=== PATIENT | male | born 1960 | race Caucasian/White ===

== ENCOUNTER 2016-06-05 18:09 | Emergency (ER) | payer MEDICARE, OTHER ==
[~2016-06-05] VITALS: Ht 177.8 cm; Wt 100.0 kg
[2016-06-05 18:10] VITALS: BP 134/87; PULSE 84; RESP 18; TEMP 97.4; O2SAT 97
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
[2016-06-05 19:42] LABS: AUTOMATED NEUTROPHIL # 3.9 TH/MM3 (1.8-7.7); BASOPHIL % 0.3 % (0.0-2.0); EOSINOPHIL % 0.7 % (0.0-4.0); HEMATOCRIT 42.4 % (39.0-51.0); HEMO FLAGS DIFF FINAL; LYMPH % 23.3 % (9.0-44.0); LYMPHOCYTE # 1.3 TH/MM3 (1.0-4.8); MEAN CELL VOLUME 83.5 FL (80.0-100.0); MEAN CORPUSCULAR HEMOGLOBIN 28.9 PG (27.0-34.0); MEAN CORPUSCULAR HGB CONC 34.6 % (32.0-36.0); MONO % 4.3 % (0.0-8.0); NEUT % 71.4 % (16.0-70.0); PLATELET COUNT 159 TH/MM3 (150-450); RED BLOOD COUNT 5.08 MIL/MM3 (4.50-5.90); RED CELL DISTRIBUTION WIDTH 17.2 % (11.6-17.2); WHITE BLOOD COUNT 5.4 TH/MM3 (4.0-11.0)
[2016-06-05 19:46] LABS: AMPHETAMINE, URINE NEG (NEG); BARBITURATES, URINE NEG (NEG); COCAINE, URINE NEG (NEG)
[2016-06-05 19:54] LABS: ANION GAP 10 MEQ/L (5-15); AST (GOT) 9 U/L (15-37); BICARBONATE 27.7 MEQ/L (21.0-32.0); BLOOD UREA NITROGEN 9 MG/DL (7-18); CHLORIDE 99 MEQ/L (98-107); GLOMERULAR FILTRATION RATE 60 ML/MIN (>89); POTASSIUM 3.7 MEQ/L (3.5-5.1); SODIUM (NA) 137 MEQ/L (136-145)
[2016-06-05 19:57] LABS: ALKALINE PHOSPHATASE 75 U/L (45-117); ALT (GPT) 15 U/L (12-78); TOTAL BILIRUBIN ADULT 0.5 MG/DL (0.2-1.0)
[2016-06-05] MEDS ORDERED: PERC10TA27 PO (21:51)
[2016-06-05] MEDS ORDERED: ANDR1GEL2 TOPICAL (21:51)
[2016-06-05] MEDS ORDERED: METH5TAB PO (21:51)
[2016-06-05] MEDS ORDERED: DIAZ10 PO (21:51)
[2016-06-05] MEDS ORDERED: SODIUM CHLOR 0.9% 1000 ML INJ 1,000 ML IV ONE (22:15)
[2016-06-05] MEDS ORDERED: ONDANSETRON HCL 4 MG/2 ML VIAL IV ONE (22:15)
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
[2016-06-05] MEDS ORDERED: ACETAMINOPHEN 325 MG TAB PO ONE (22:30)
[2016-06-05] MEDS ORDERED: ONDANSETRON HCL 4 MG/2 ML VIAL IV PUSH ONE (23:15)
[2016-06-06 06:17] VITALS: BP 139/73; PULSE 81; RESP 18; O2SAT 97
[2016-06-06] MEDS ORDERED: VIAG100T PO (08:34)
[2016-06-06 12:44] VITALS: BP 139/73; PULSE 81; RESP 18; O2SAT 97
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
== END 2016-06-06 13:33 | disposition home or self-care (01) ==
LOC: NEPE 18:09 → NEPJ 06-06 13:33
DX: F22 Delusional disorders (principal); G44.319 Acute post-traumatic headache, not intractable; R11.2 Nausea with vomiting, unspecified
CPT/HCPCS: 70450; 72125; 80053; 80307; 83690; 85025; 96374; 96376; 99285; J2405; J7030

== ENCOUNTER 2017-02-18 12:53 | Inpatient (IN) | payer MEDICARE, OTHER ==
[~2017-02-18] VITALS: Ht 177.8 cm; Wt 100.5 kg
[~2017-02-18 12:53] MED LIST: ANDR1GEL2 TOPICAL; DIAZ10 PO; METH5TAB PO; PERC10TA27 PO; VIAG100T PO
[2017-02-18 13:36] VITALS: BP 134/84; PULSE 78; RESP 16; TEMP 98.2; O2SAT 98
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
[2017-02-18 14:31] LABS: AUTOMATED NEUTROPHIL # 3.5 TH/MM3 (1.8-7.7); BASOPHIL % 0.7 % (0.0-2.0); EOSINOPHIL # 0.1 TH/MM3 (0-0.4); EOSINOPHIL % 1.7 % (0.0-4.0); HEMATOCRIT 43.9 % (39.0-51.0); HEMO FLAGS DIFF FINAL; LYMPH % 29.1 % (9.0-44.0); LYMPHOCYTE # 1.6 TH/MM3 (1.0-4.8); MEAN CORPUSCULAR HEMOGLOBIN 28.4 PG (27.0-34.0); MEAN CORPUSCULAR HGB CONC 33.4 % (32.0-36.0); MONO % 3.7 % (0.0-8.0); NEUT % 64.8 % (16.0-70.0); PLATELET COUNT 136 TH/MM3 (150-450); RED BLOOD COUNT 5.17 MIL/MM3 (4.50-5.90); RED CELL DISTRIBUTION WIDTH 16.4 % (11.6-17.2); WHITE BLOOD COUNT 5.4 TH/MM3 (4.0-11.0)
[2017-02-18 14:53] LABS: ALKALINE PHOSPHATASE 78 U/L (45-117); TOTAL BILIRUBIN ADULT 0.4 MG/DL (0.2-1.0)
[2017-02-18 14:55] LABS: ALT (GPT) 32 U/L (12-78); ANION GAP 6 MEQ/L (5-15); AST (GOT) 15 U/L (15-37); BICARBONATE 27.9 MEQ/L (21.0-32.0); BLOOD UREA NITROGEN 20 MG/DL (7-18); CHLORIDE 103 MEQ/L (98-107); GLOMERULAR FILTRATION RATE 85 ML/MIN (>89); POTASSIUM 4.2 MEQ/L (3.5-5.1); SODIUM (NA) 137 MEQ/L (136-145)
[2017-02-18 14:58] LABS: ACETAMINOPHEN LESS THAN 2.0 MCG/ML (10.0-30.0); ALCOHOL LESS THAN 3 MG/DL (0-5)
[2017-02-18 18:39] VITALS: BP 182/95; PULSE 80; RESP 16; O2SAT 97
[2017-02-18] MEDS ORDERED: BENZTROPINE MESYLATE 1 MG TAB PO PRN (20:30)
[2017-02-18] MEDS ORDERED: ALUMINUM/MAGNESIUM/SIMETH 30 ML CUP PO PRN (20:30)
[2017-02-18] MEDS ORDERED: MAGNESIUM HYDROXIDE SUSP 30 ML CUP PO PRN (20:30)
[2017-02-18] MEDS ORDERED: BENZTROPINE MESYLATE 2 MG/2 ML VIAL IM PRN (20:30)
[2017-02-18] MEDS ORDERED: ACETAMINOPHEN 325 MG TAB PO PRN (20:30)
[2017-02-18] MEDS: diphenhydrAMINE HCL 50 MG CAP PO PRN (21:32)
[2017-02-18 21:45] VITALS: BP 162/105; PULSE 65; RESP 17; TEMP 98.3; O2SAT 97
[2017-02-18] MEDS: hydrOXYzine HCL 50 MG TAB PO PRN (23:17)
[2017-02-19] MEDS: hydrOXYzine HCL 50 MG TAB PO PRN (04:49)
[2017-02-19 05:32] VITALS: BP 171/109; PULSE 72; RESP 18; TEMP 97.6; O2SAT 96
[2017-02-19] MEDS ORDERED: cloNIDine HCL 0.1 MG TAB PO PRN (07:30)
[2017-02-19] MEDS: NICOTINE 21 MG/24 HR PATCH T-DERMAL PRN (09:01)
[2017-02-19 09:11] LABS: ANION GAP 10 MEQ/L (5-15); BICARBONATE 26.1 MEQ/L (21.0-32.0); BLOOD UREA NITROGEN 14 MG/DL (7-18); CHLORIDE 100 MEQ/L (98-107); GLOMERULAR FILTRATION RATE 81 ML/MIN (>89); SODIUM (NA) 136 MEQ/L (136-145)
[2017-02-19 09:16] LABS: LDL CHOLESTEROL 111 MG/DL (0-99)
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
[2017-02-19] MEDS ORDERED: OLANZapine IM 10 MG VIAL IM PRN (13:00)
[2017-02-19 13:30] VITALS: BP 162/98; PULSE 95; TEMP 98.6; O2SAT 98
[2017-02-19] MEDS: METHADONE HCL 10 MG TAB PO SCH ×2 (14:14→22:00)
[2017-02-19 14:15] LABS: HEMOGLOBIN A1a 1.1 %; HEMOGLOBIN LA1C 2.3 %
--- NOTE | 2017-02-19 15:31 | PD.TTN ---
Patient Problems 1. Discharge planning 2. Medication compliance 3. Knowledge deficit 4. Lack of coping skills Progress Toward Goals Provider Present: Dr. Alfonso Castillo Provider Input: 02-18-17 - Dr. Castillo reported the patientis sexually preoccupied. Psychiatric Counselors Present: AUDREY Mello Psych Therapist Input: This patient is new to this counselor and will be seen today after treatment team meeting. Group Spec/RT/OT/BIGGS Present: ESMER Velasquez Group Spec/RT/OT/BIGGS Input: Patient isolates to his room and will need encouragement to participate in group activities. Documentation Scribe: AUDREY Mello Date Resolved: Feb 19, 2017 Emily Waggoner Feb 19, 2017 15:31
[2017-02-19 16:21] VITALS: BP 136/71; PULSE 66; RESP 18; TEMP 98.3; O2SAT 95
[2017-02-19] MEDS ORDERED: OLANZapine ODT 10 MG TAB PO SCH (21:00)
--- NOTE | 2017-02-19 21:43 | EKG ---
Date Performed: 02/19/2017 Time Performed: 17:08:48 PTAGE: 56 years EKG: Sinus rhythm NORMAL ECG NO PREVIOUS TRACING DOCTOR: Eloy Rios Interpretating Date/Time 02/19/2017 21:41:43
[2017-02-20 05:47] VITALS: BP 146/73; PULSE 69; RESP 17; TEMP 97.6; O2SAT 95
[2017-02-20] MEDS: METHADONE HCL 10 MG TAB PO SCH ×3 (06:00→21:54)
[2017-02-20] MEDS: NICOTINE 21 MG/24 HR PATCH T-DERMAL PRN (08:24)
--- NOTE | 2017-02-20 11:10 | HHI.PYPN ---
Subjective Chief Complaint: Psychosis Remarks Patient seen and examined with nurse. Chart reviewed. Case discussed with nurse in counselor. On my exam, patient is angry. He is demanding discharge. He remains paranoid about his sister and endorses thoughts of violence against his sister, noting that he would like to "smack the piss out of my sister." He does not report any HI against anyone else. He denies SI. He initially denies any ongoing delusions about satellites or [employer], saying "I made it all up as a joke." However, he clearly still harbors these beliefs and following our interview he leans out of his room in the hallway to arjun the team about his delusions, saying that the satellites are going to "steal [this physician's] fucking evy!" He later says "your evy is hanging low." Speech remains pressured. Denies side effects from medications. No physical complaints except patient does note he follows with an cardiopulmonary technician for increased pressure in left eye and says that he needs to follow up to have a needle stuck in his eye to relieve the pressure. Review of Systems ROS Limitations: Psychotic, Poor Historian Except as stated in HPI: all other systems reviewed are Neg Mental Status Examination Appearance: Disheveled Consciousness: Alert, Vigilant (remains hypervigilant and paranoid) Orientation: Person, Place Motor Activity: Other (no hand tremor, no dystonia, no dyskinesia noted. No other motor abnormalities noted.) Speech: Pressured Language: Adequate Fund of Knowledge: Adequate Attention and Concentration: Easily Distracted Memory: Impaired (continue to suspect some degree of confabulation secondary to psychosis) Mood: Irritable Affect: Irritable, Other (remains dysphoric) Thought Process & Associations: Other (continues, almost in spite of himself, to perseverate on delusional themes) Thought Content: Delusional Hallucination Type: Other (remains internally preoccupied) Delusion Type: Paranoid (ongoing systematized paranoid delusions) Suicidal Ideation: No (unreliable to contract for safety) Suicidal Plan: No Suicidal Intention: No Homicidal Ideation: Yes (he would like to smack his sister) Homicidal Plan: No Homicidal Intention: No Insight: Poor Judgment: Poor Results Labs Labs reviewed. No new labs. Extended urine toxicology screening is pending. Vitals/IOs Vital Signs Date Time Temp Pulse Resp B/P (MAP) Pulse Ox O2 Delivery O2 Flow Rate FiO2 02/20/17 05:47 97.6 69 17 146/73 (97) 95 02/18/17 18:39 Room Air Assessment & Plan Problem List: (1) Other psychotic disorder not due to a substance or known physiological condition ICD Codes: F28 - Other psychotic disorder not due to a substance or known physiological condition Assessment & Plan Titrate Zyprexa to 15mg qHS to target psychosis with IM backup. Awaiting hospitalist input re: plt and HTN. I will check CBC in am to trend platelets. BPs have actually been somewhat improved. I will consult ophthalmology to determine whether any acute treatment is needed for patient's reported issues with eye pressure while patient remains an inpatient. Continue to monitor on high acuity unit. Continue other medications and care as ordered. Justification for Cont. Inpt. Med changes. Impairment in reality construction. High risk for decompensation in less restrictive environment. Discharge Planning Pending psychiatric stabilization. [place] court tomorrow. Request HC Surrog/Guard Advoc?: Yes Hiren Castillo MD Feb 20, 2017 11:10
--- NOTE | 2017-02-20 12:33 | PD.PSY.CON ---
Provisional Diagnosis Admission Date Feb 18, 2017 at 20:19 Downey I. 1. Other psychotic disorder Rule-out primary psychotic disorder Rule-out mood disorder with psychotic features (such as BPAD mixed with psychosis) Rule-out psychosis due to a substance Rule-out psychosis due to a general medical condition 2. Urine toxicology positive for cannabinoids. Downey II. Deferred History of Present Illness Service Psychiatry Consult Requested By Dr. Castillo Reason for Consult Second opinion Primary Care Physician No Primary Care Physician HPI Mr. Farnsworth is a 56 year-old male of uncertain past psychiatric history who presented to the ED under a [place] Act by law enforcement alleging suicidal statements as well as threats against sister. Case discussed with psychiatric screener overnight. Reviewing the EMR, I note the patient was seen once before in the ED by Dr. Maxwell who felt at the time that patient was drug- seeking and manipulative.Patient seen and examined with nurse and counselor. Chart reviewed. Case discussed with counselor and nurse. Per nursing, patient somewhat irritable but otherwise no significant behavioral problem on the unit. On my examination today, patient remains fairly irritable. Speech is pressured, difficult to interrupt, and rambling. When I inquire as to how we can be of assistance in his case, he says "what are you going to do, get my evy back?" He then tells me to talk to his sister, Gisel. He is paranoid about Gisel, however, and tells me "this goes deeper than you think it does. She's a felon and a drug trafficker." He articulates a belief that he is being accused of being a rapist or a pedophile by "these other people in the [employer] system. They don't like me because I'm a Ron, a fucking Mosque." He says that these people are making these accusation via satellite, "but I'm not a sex offender or a rapist!" Affect is dysphoric. Sleep was reportedly poor prior to admission. Thought process is perseverative on delusional themes and on his antipathy for his sister. He denies any suicidal or homicidal ideation but seems unreliable to contract for safety in his present state. Psychiatric interview is limited by his degree of psychotic decompensation. He does not verbalize any physical complaints. I am unable to obtain meaningful past psychiatric, family, chem dep or social history from the patient presently because of his psychiatric symptomatology. I am able to glean that he collects a monthly check in the amount of $950 as well as food stamps, and he may have access to guns. He is unable to share much about previous med trials, although he has been on Seroquel and Xanax in the past by his report. He did not like the Seroquel. He reports that he takes methadone 20mg q8h as well as Percocet for breakthrough pain. The patient is a 56 years old man, domiciled with his daughter, unemployed, supported by SSI was brought to the ED under [place] act due to suicidal ideation and aggressive behavior against his sister. On psychiatric evaluation today patient is irritable, oppositional, demanding to be discharged. The patient says that the only reason he is here is because his sister has been in been "inventing a lot of lies about me". Patient is very loud, perseverant seems to be internally preoccupied and paranoid. When I ask him if he has been hearing voices or having any perceptual disturbances, the patient says that he doesn't want to speak with me anymore, "I just will speak with my rn invasive" Review of Systems Except as stated in HPI: all other systems reviewed are Neg Past Family Social History Coded Allergies: No Known Allergies (Unverified Allergy, Unknown, 02/18/17) Reported Medications Sildenafil (Viagra) 100 Mg Tab, 100 MG PO DIRECTED Y for ERECTILE DYSFUNCTION , TAB 0 Refills 06/06/16 Testosterone Topical (Androgel Topical) 50 Mg/5 Gm Gel, 50 MG TOPICAL DAILY for Hormone Replacement, #1 TUBE 0 Refills Apply in the morning to the thighs. 06/05/16 Oxycodone-Acetaminophen (Percocet) 10-325 mg Tab, 1 TAB PO Q4H Y for PAIN, TAB 0 Refills 06/05/16 Methadone (Methadone) 5 Mg Tab, 10 MG PO Q6HR, TAB 0 Refills 06/05/16 Discontinued Reported Medications Diazepam (Valium) 10 Mg Tab, 10 MG PO BID Y for PAIN, TAB 0 Refills 06/05/16 Current Medications Medications (Trade) Dose Ordered Sig/Hugo Route Start Time Stop Time Status Last Admin (Benadryl) 50 mg HS PRN PO 02/18/17 20:30 02/18/17 21:32 (Tylenol) 650 mg Q4H PRN PO 02/18/17 20:30 (Milk Of Magnesia Liq) 30 ml DAILY PRN PO 02/18/17 20:30 (Mag-Al Plus Susp Liq) 30 ml Q6H PRN PO 02/18/17 20:30 (Habitrol 21 Mg Patch.24 Hr) 1 patch DAILY PRN T-DERMAL 02/18/17 20:30 02/20/17 08:24 (Atarax) 50 mg Q6H PRN PO 02/18/17 20:30 02/19/17 04:49 (Cogentin) 1 mg Q12H PRN PO 02/18/17 20:30 (Cogentin Inj) 1 mg Q12H PRN IM 02/18/17 20:30 (Catapres) 0.1 mg Q8HR PRN PO 02/19/17 07:30 02/19/17 11:26 (Dolophine) 20 mg Q8HR PO 02/19/17 14:00 02/20/17 06:00 (Percocet 10-325 Mg) 1 tab Q6H PRN PO 02/19/17 12:30 (ZyPREXA ZYDIS ODT) 10 mg HS PO 02/19/17 21:00 02/19/17 21:00 (ZyPREXA INJ) 10 mg HS PRN IM 02/19/17 13:00 Patient's Strengths (min. 2) In a monitored setting. Verbally fluent. Physical Exam Vital Signs Vital Signs Date Time Temp Pulse Resp B/P (MAP) Pulse Ox O2 Delivery O2 Flow Rate FiO2 02/20/17 05:47 97.6 69 17 146/73 (97) 95 02/18/17 18:39 Room Air Mental Status Examination Appearance: Disheveled Consciousness: Alert, Vigilant Orientation: Person, Place (at least) Motor Activity: Other (no motor abnormalities noted) Speech: Pressured Language: Adequate Fund of Knowledge: Adequate Attention and Concentration: Easily Distracted Memory: Impaired (possibly some degree of confabulation secondary to psychosis) Mood: Irritable Affect: Irritable, Other (dysphoric) Thought Process & Associations: Other (perseverative on delusional themes) Thought Content: Delusional Hallucination Type: Other (appears internally stimulated) Delusion Type: Paranoid (systematized paranoid delusions as noted above) Suicidal Ideation: No (unreliable to contract for safety) Suicidal Plan: No Suicidal Intention: No Homicidal Ideation: No (unreliable to contract for safety) Homicidal Plan: No Homicidal Intention: No Insight: Poor Judgment: Poor Assessment & Plan Problem List: (1) Other psychotic disorder not due to a substance or known physiological condition ICD Codes: F28 - Other psychotic disorder not due to a substance or known physiological condition Assessment & Plan: I Have seen and examined this patient, reviewed chart, discussed with Dr. Castillo, and I agree and concur with this assessment and plan. Consult appreciated. Assessment & Plan Estimated LOS: days Request HC Surrog/Guard Advoc?: Yes Broderick Lara MD Feb 20, 2017 12:33
[2017-02-20 18:00] VITALS: BP 162/85; PULSE 78; RESP 18; TEMP 97.2; O2SAT 97
[2017-02-20] MEDS ORDERED: GLUCAGON 1 MG/ML VIAL OTHER PRN (18:30)
[2017-02-20] MEDS ORDERED: LISINOPRIL 20 MG TAB PO ONE (18:30)
[2017-02-20] MEDS ORDERED: DEXTROSE 50% IN WATER 50 ML VIAL(D50) IV PUSH PRN (18:30)
--- NOTE | 2017-02-20 18:50 | PD.CONS ---
HPI Service [facility] Consult Requested By Dr Castillo Reason for Consult Management of hypertension and thrombocytopenia. Primary Care Physician No Primary Care Physician Diagnoses: History of Present Illness This is a 56-year-old male who presented to the ED under Newman act by police after alleging suicidal statements as well as threats against sister. I am being consulted for management of hypertension and thrombocytopenia. Patient refuses to talk and answer questions. However upon review of systems, denies cp, sob, cough, fevers or chills, no diarrhea. Review of Systems As per history of present illness, other systems reviewed by me and negative. Past Family Social History Allergies: Coded Allergies: No Known Allergies (Unverified Allergy, Unknown, 02/18/17) Past Medical History Denies Past Surgical History Denies Reported Medications Reported Meds & Active Scripts Active Reported Viagra (Sildenafil Citrate) 100 Mg Tab 100 Mg PO DIRECTED PRN Androgel Topical (Testosterone) 50 Mg/5 Gm Gel 50 Mg TOPICAL DAILY Apply in the morning to the thighs. Percocet (Oxycodone-Acetaminophen) 10-325 mg Tab 1 Tab PO Q4H PRN Methadone (Methadone HCl) 5 Mg Tab 10 Mg PO Q6HR Active Ordered Medications Current Medications Medications (Trade) Dose Ordered Sig/Hugo Route Start Time Stop Time Status Last Admin (Benadryl) 50 mg HS PRN PO 02/18/17 20:30 02/18/17 21:32 (Tylenol) 650 mg Q4H PRN PO 02/18/17 20:30 (Milk Of Magnesia Liq) 30 ml DAILY PRN PO 02/18/17 20:30 (Mag-Al Plus Susp Liq) 30 ml Q6H PRN PO 02/18/17 20:30 (Habitrol 21 Mg Patch.24 Hr) 1 patch DAILY PRN T-DERMAL 02/18/17 20:30 02/20/17 08:24 (Atarax) 50 mg Q6H PRN PO 02/18/17 20:30 02/19/17 04:49 (Cogentin) 1 mg Q12H PRN PO 02/18/17 20:30 (Cogentin Inj) 1 mg Q12H PRN IM 02/18/17 20:30 (Catapres) 0.1 mg Q8HR PRN PO 02/19/17 07:30 02/19/17 11:26 (Dolophine) 20 mg Q8HR PO 02/19/17 14:00 02/20/17 13:29 (Percocet 10-325 Mg) 1 tab Q6H PRN PO 02/19/17 12:30 (ZyPREXA INJ) 10 mg HS PRN IM 02/19/17 13:00 (ZyPREXA ZYDIS ODT) 15 mg HS PO 02/20/17 21:00 (D50w (Vial) Inj) 50 ml UNSCH PRN IV PUSH 02/20/17 18:30 (Glucagon Inj) 1 mg UNSCH PRN OTHER 02/20/17 18:30 (NovoLOG SUPPLEMENTAL SCALE) 1 ACHS SLIDING SCALE SQ 02/20/17 21:00 (Prinivil) 20 mg DAILY PO 02/21/17 09:00 (Glucophage) 500 mg BIDPC PO 02/21/17 09:00 Family History Does not wish to discuss - states his parents are . Social History Denies smoking, drinking alcohol or using drugs. Physical Exam Vital Signs Vital Signs Date Time Temp Pulse Resp B/P (MAP) Pulse Ox O2 Delivery O2 Flow Rate FiO2 02/20/17 18:00 97.2 78 18 162/85 (110) 97 02/20/17 05:47 97.6 69 17 146/73 (97) 95 Physical Exam GENERAL: This is a well-nourished, well-developed patient, in no apparent distress. SKIN: No rashes, ecchymoses or lesions. Cool and dry. HEAD: Atraumatic. Normocephalic. No temporal or scalp tenderness. EYES: Pupils equal round and reactive. Extraocular motions intact. No scleral icterus. No injection or drainage. ENT: Nose without bleeding, purulent drainage or septal hematoma. Throat without erythema, tonsillar hypertrophy or exudate. Uvula midline. Airway patent. NECK: Trachea midline. No JVD or lymphadenopathy. Supple, nontender, no meningeal signs. CARDIOVASCULAR: Regular rate and rhythm without murmurs, gallops, or rubs. RESPIRATORY: Clear to auscultation. Breath sounds equal bilaterally. No wheezes , rales, or rhonchi. GASTROINTESTINAL: Abdomen soft, non-tender, nondistended. No hepato-splenomegaly , or palpable masses. No guarding. MUSCULOSKELETAL: Extremities without clubbing, cyanosis, or edema. No joint tenderness, effusion, or edema noted. No calf tenderness. Negative Homans sign bilaterally. NEUROLOGICAL: Awake and alert. Cranial nerves II through XII intact. Motor and sensory grossly within normal limits. Five out of 5 muscle strength in all muscle groups. Normal speech. Psych: Paranoid, delusional, talking alone with pressured speech. Result Diagram: 02/18/17 1410 02/19/17 0730 Assessment and Plan Problem List: (1) Other psychotic disorder not due to a substance or known physiological condition ICD Code: F28 - Other psychotic disorder not due to a substance or known physiological condition Plan: Management as per psychiatry. The patient currently on Zyprexa. Will check B12, TSH, RPR screen, patient had a CT of the head on 06/05/16 which showed no acute disease. (2) Prediabetes ICD Code: R73.03 - Prediabetes Plan: Patient noted to be hypoglycemic. Hemoglobin A1c 6.1. The patient is a prediabetic. I will start the patient on oral metformin and a statin. (3) HTN (hypertension) ICD Code: I10 - Essential (primary) hypertension Plan: Blood pressure seems to be persistently elevated. I will start the patient on lisinopril 20 mg by mouth daily and adjust accordingly. (4) Thrombocytopenia ICD Code: D69.6 - Thrombocytopenia, unspecified Plan: Patient has platelets of 1:30 6K. Upon review of medical records patient had a platelet count of 159K on 06/05/16. (5) Hyperlipidemia ICD Code: E78.5 - Hyperlipidemia, unspecified Plan: Lipid profile shows elevated service was 173, total cholesterol 190, LDL cholesterol 111, HDL cholesterol 44. I will start the patient on a low-dose statin given that LDL target should be less than 100 for diabetic patients. (6) Smoking ICD Code: F17.200 - Nicotine dependence, unspecified, uncomplicated Plan: Advised smoking cessation. Continue nicotine patch. Assessment and Plan DVT prophylaxis: Encourage ambulation. Code Status Full code Discussed Condition With Patient, RN Problem Qualifiers (1) Hyperlipidemia: Qualified Codes: E78.5 - Hyperlipidemia, unspecified Harry Connelly MD Feb 20, 2017 18:50
[2017-02-20] MEDS ORDERED: OLANZapine ODT 15 MG TAB PO SCH (21:00)
[2017-02-20] MEDS: INSULIN ASPART SUPPLEMENTAL SCALE SQ SCH (21:00)
[2017-02-21 05:50] VITALS: BP 110/60; PULSE 75; RESP 17; TEMP 97.5; O2SAT 95
[2017-02-21] MEDS: METHADONE HCL 10 MG TAB PO SCH ×3 (06:00→21:13)
[2017-02-21] MEDS: INSULIN ASPART SUPPLEMENTAL SCALE SQ SCH ×4 (07:00→21:00)
[2017-02-21] MEDS: metFORMIN HCL 500 MG TAB PO SCH ×2 (08:50→17:02)
[2017-02-21] MEDS: LISINOPRIL 20 MG TAB PO SCH (08:51)
--- NOTE | 2017-02-21 12:34 | PD.CONS ---
History of Present Illness Service Ophthalmology Consult Requested By Reason for Consult left eye issue Primary Care Physician No Primary Care Physician Diagnoses: History of Present Illness 56 yo M Newman Acted with symptoms of psychosis. Ophthalmology consulted to evaluate patient's left eye. Patient initially stated I'm not his Administrative Secretary and therefore he did not want to talk to me or let me examine him. He states he has seen his Ophtho a few times to get a needle stuck in his left eye to relieve the pressure. When I asked if his Ophtho was Dr. Miles ( [facility]), patient confirmed it was. I received records from Dr. Miles's office - patient was being treated for a branch retinal vein occlusion with macular edema in his left eye. He received an injection of Eylea in his left eye on and was supposed to go back 1 month later for a follow up but he says his sister could not take him. Patient states he is having blurry vision in his left eye and needs to go back to have another injection in his left eye. Past Family Social History Allergies: Coded Allergies: No Known Allergies (Unverified Allergy, Unknown, 02/18/17) Physical Exam Vital Signs Vital Signs Date Time Temp Pulse Resp B/P (MAP) Pulse Ox O2 Delivery O2 Flow Rate FiO2 02/21/17 05:50 97.5 75 17 110/60 (77) 95 02/20/17 18:00 97.2 78 18 162/85 (110) 97 Physical Exam Pt refused to cooperate with an ocular exam. Result Diagram: 02/18/17 1410 02/19/17 0730 Assessment and Plan Problem List: (1) Branch retinal vein occlusion of left eye with macular edema ICD Codes: H34.8320 - Tributary (branch) retinal vein occlusion, left eye, with macular edema Plan: Follow up with Dr. Miles (Retina) as an outpatient once discharged. Angella Milian MD Feb 21, 2017 12:34
[2017-02-21 13:56] LABS: AUTOMATED NEUTROPHIL # 2.3 TH/MM3 (1.8-7.7); BASOPHIL % 0.6 % (0.0-2.0); EOSINOPHIL # 0.1 TH/MM3 (0-0.4); EOSINOPHIL % 2.8 % (0.0-4.0); HEMATOCRIT 40.8 % (39.0-51.0); HEMO FLAGS DIFF FINAL; LYMPH % 42.3 % (9.0-44.0); LYMPHOCYTE # 1.9 TH/MM3 (1.0-4.8); MEAN CELL VOLUME 85.6 FL (80.0-100.0); MEAN CORPUSCULAR HEMOGLOBIN 29.2 PG (27.0-34.0); MEAN CORPUSCULAR HGB CONC 34.1 % (32.0-36.0); MONO % 3.4 % (0.0-8.0); NEUT % 50.9 % (16.0-70.0); PLATELET COUNT 110 TH/MM3 (150-450); RED BLOOD COUNT 4.77 MIL/MM3 (4.50-5.90); RED CELL DISTRIBUTION WIDTH 16.8 % (11.6-17.2); WHITE BLOOD COUNT 4.5 TH/MM3 (4.0-11.0)
--- NOTE | 2017-02-21 16:05 | HHI.PYPN ---
Subjective Chief Complaint: Psychosis Remarks Patient seen and examined with nurse. Chart reviewed. Case discussed with nursing staff who reports the patient was complaining of having "6 cameras in his eyes." I also see in nursing notes that the patient was frankly responding to internal stimuli overnight and was hitting himself in the head, apparently in an effort to ameliorate these voices. On my examination today, the patient remains irritable and psychotic. He denies suicidal or homicidal ideation but seems distinctly unreliable to contract for safety. Affect remains quite angry. He volunteers that his auditory hallucinations are "gone" but this seems to be in service of obtaining a discharge, and the patient remains obviously internally stimulated. Paranoia is ongoing. Denies side effects from medications. No physical complaints. Review of Systems ROS Limitations: Psychotic, Poor Historian Except as stated in HPI: all other systems reviewed are Neg Mental Status Examination Appearance: Disheveled Consciousness: Alert, Vigilant (remains hypervigilant and paranoid) Orientation: Person, Place Motor Activity: Other (no motoric abnormalities noted) Speech: Pressured Language: Adequate Fund of Knowledge: Adequate Attention and Concentration: Easily Distracted Mood: Angry, Irritable Affect: Irritable, Other (remains dysphoric) Thought Process & Associations: Other (perseverative) Thought Content: Delusional Hallucination Type: Other (internally stimulated) Delusion Type: Paranoid Suicidal Ideation: No (unreliable to contract for safety) Homicidal Ideation: No (unreliable to contract for safety) Insight: Poor Judgment: Poor Results Labs Test 02/21/17 13:10 White Blood Count 4.5 TH/MM3 Red Blood Count 4.77 MIL/MM3 Hemoglobin 13.9 GM/DL Hematocrit 40.8 % Mean Corpuscular Volume 85.6 FL Mean Corpuscular Hemoglobin 29.2 PG Mean Corpuscular Hemoglobin Concent 34.1 % Red Cell Distribution Width 16.8 % Platelet Count 110 TH/MM3 Mean Platelet Volume 6.9 FL Neutrophils (%) (Auto) 50.9 % Lymphocytes (%) (Auto) 42.3 % Monocytes (%) (Auto) 3.4 % Eosinophils (%) (Auto) 2.8 % Basophils (%) (Auto) 0.6 % Neutrophils # (Auto) 2.3 TH/MM3 Lymphocytes # (Auto) 1.9 TH/MM3 Monocytes # (Auto) 0.2 TH/MM3 Eosinophils # (Auto) 0.1 TH/MM3 Basophils # (Auto) 0.0 TH/MM3 CBC Comment DIFF FINAL Differential Comment Vitamin B12 Level 405 PG/ML Thyroid Stimulating Hormone 3rd Gen 1.700 uIU/ML Labs reviewed. Mild interval worsening of patient's thrombocytopenia. Vitals/IOs Vital Signs Date Time Temp Pulse Resp B/P (MAP) Pulse Ox O2 Delivery O2 Flow Rate FiO2 02/21/17 05:50 97.5 75 17 110/60 (77) 95 02/18/17 18:39 Room Air Assessment & Plan Problem List: (1) Other psychotic disorder not due to a substance or known physiological condition ICD Codes: F28 - Other psychotic disorder not due to a substance or known physiological condition Assessment & Plan Patient remains severely decompensated with respect to his psychotic illness. I will titrate his Zyprexa to 20 mg at bedtime to target this symptom. However , if we do not begin to see some progress with this agent soon, I think we will need to consider alternative therapy, either augmentation with a different antipsychotic or replacement with a different antipsychotic, or perhaps addition of a mood stabilizer to target patient's dysphoria and irritability. Hospitalist input noted and appreciated. Ophthalmology input noted and appreciated, and I will refer the patient to front office developer on discharge as recommended. Continue to monitor on the high acuity unit. Continue other medications and care as ordered. Justification for Cont. Inpt. Impairment in reality construction. Med changes. Concern for impairment and safety. High risk for decompensation in less restrictive environment. Discharge Planning Pending stabilization. Request HC Surrog/Guard Advoc?: Yes Hiren Castillo MD Feb 21, 2017 16:05
[2017-02-21] MEDS: hydrOXYzine HCL 50 MG TAB PO PRN (17:00)
[2017-02-21 18:04] VITALS: BP 127/77; PULSE 78; RESP 18; TEMP 98; O2SAT 99
--- NOTE | 2017-02-21 18:34 | HHI.PR ---
Subjective Remarks Patient denies any complaints. Denies cp, sob, headache, dizziness. Objective Vitals Vital Signs Date Time Temp Pulse Resp B/P (MAP) Pulse Ox O2 Delivery O2 Flow Rate FiO2 02/21/17 18:04 98.0 78 18 127/77 (94) 99 02/21/17 05:50 97.5 75 17 110/60 (77) 95 Result Diagram: 02/21/17 1310 02/19/17 0730 Objective Remarks AAOx3 NAD PERRLA Clear lungs BL S1S2 RRR, no MRG Abdomen soft, nt, nd Medications and IVs Current Medications Medications (Trade) Dose Ordered Sig/Hugo Route Start Time Stop Time Status Last Admin (Benadryl) 50 mg HS PRN PO 02/18/17 20:30 02/18/17 21:32 (Tylenol) 650 mg Q4H PRN PO 02/18/17 20:30 (Milk Of Magnesia Liq) 30 ml DAILY PRN PO 02/18/17 20:30 (Mag-Al Plus Susp Liq) 30 ml Q6H PRN PO 02/18/17 20:30 (Habitrol 21 Mg Patch.24 Hr) 1 patch DAILY PRN T-DERMAL 02/18/17 20:30 02/20/17 08:24 (Atarax) 50 mg Q6H PRN PO 02/18/17 20:30 02/19/17 04:49 (Cogentin) 1 mg Q12H PRN PO 02/18/17 20:30 (Cogentin Inj) 1 mg Q12H PRN IM 02/18/17 20:30 (Catapres) 0.1 mg Q8HR PRN PO 02/19/17 07:30 02/19/17 11:26 (Dolophine) 20 mg Q8HR PO 02/19/17 14:00 02/21/17 13:19 (Percocet 10-325 Mg) 1 tab Q6H PRN PO 02/19/17 12:30 (ZyPREXA INJ) 10 mg HS PRN IM 02/19/17 13:00 (D50w (Vial) Inj) 50 ml UNSCH PRN IV PUSH 02/20/17 18:30 (Glucagon Inj) 1 mg UNSCH PRN OTHER 02/20/17 18:30 (NovoLOG SUPPLEMENTAL SCALE) 1 ACHS SLIDING SCALE SQ 02/20/17 21:00 02/20/17 21:00 (Prinivil) 20 mg DAILY PO 02/21/17 09:00 02/21/17 08:51 (Glucophage) 500 mg BIDPC PO 02/21/17 09:00 02/21/17 17:02 (ZyPREXA ZYDIS ODT) 20 mg HS PO 02/21/17 21:00 Urinary Catheter: No Vascular Central Line Catheter: No A/P Problem List: (1) Other psychotic disorder not due to a substance or known physiological condition ICD Code: F28 - Other psychotic disorder not due to a substance or known physiological condition Plan: Management as per psychiatry. The patient currently on Zyprexa. B12 normal normal tsh RPR pending repeat head ct (2) Prediabetes ICD Code: R73.03 - Prediabetes Plan: Patient noted to be hypoglycemic. Hemoglobin A1c 6.1. The patient is a prediabetic. I will start the patient on oral metformin and a statin. (3) HTN (hypertension) ICD Code: I10 - Essential (primary) hypertension Plan: Blood pressure seems to be persistently elevated. I will start the patient on lisinopril 20 mg by mouth daily and adjust accordingly. 02/21 BP more stable. Continue lisinopril 20 mg po daily. (4) Thrombocytopenia ICD Code: D69.6 - Thrombocytopenia, unspecified Plan: 02/21 Patients has a platelet count of 136 k trending down to 110 k today. Upon review of medical records patient had a platelet count of 159K on 06/05/16. (5) Hyperlipidemia ICD Code: E78.5 - Hyperlipidemia, unspecified Plan: Lipid profile shows elevated service was 173, total cholesterol 190, LDL cholesterol 111, HDL cholesterol 44. Continue statin given that LDL target should be less than 100 for diabetic patients. (6) Smoking ICD Code: F17.200 - Nicotine dependence, unspecified, uncomplicated Plan: Advised smoking cessation. Continue nicotine patch. Assessment and Plan DVT prophylaxis - Encourage ambulation Problem Qualifiers (1) Hyperlipidemia: Qualified Codes: E78.5 - Hyperlipidemia, unspecified Harry Connelly MD Feb 21, 2017 18:34
[2017-02-21] MEDS ORDERED: OLANZapine ODT 20 MG TAB PO SCH (21:00)
[2017-02-22] MEDS: METHADONE HCL 10 MG TAB PO SCH ×3 (06:01→20:58)
[2017-02-22 06:13] VITALS: BP 119/70; PULSE 73; RESP 18; TEMP 98.4; O2SAT 95
[2017-02-22] MEDS: INSULIN ASPART SUPPLEMENTAL SCALE SQ SCH ×4 (08:00→20:45)
[2017-02-22] MEDS: LISINOPRIL 20 MG TAB PO SCH (08:18)
[2017-02-22] MEDS: metFORMIN HCL 500 MG TAB PO SCH ×2 (08:18→17:34)
--- NOTE | 2017-02-22 10:58 | HHI.PYPN ---
Subjective Chief Complaint: Psychosis Remarks Patient seen and examined with counselor and nurse. Chart reviewed. Case discussed in treatment team. Nurse notes that the patient slept somewhat better overnight but had an episode of head banging yesterday because of responding to internal stimuli. On my examination today, patient is a little calmer but with underlying irritability. He remains quite paranoid about his sister. Although he does not say anything about satellites/[employer], he makes several oblique references that lead me to believe he still harbors delusional material about these entities. No SI or HI, but it is unclear that he is reliable to contract for safety in any event. Denies side effects from medications. No physical complaints. We discuss transitioning to a different antipsychotic agent, and the patient is agreeable but wants one with less liability toward sexual side effects. We discussed the most common mechanism for antipsychotic induced sexual dysfunction, namely hyperprolactinemia, as part of our review of antipsychotic side effects in general today. We settle on a trial of Abilify. Review of Systems ROS Limitations: Psychotic, Poor Historian Except as stated in HPI: all other systems reviewed are Neg Mental Status Examination Appearance: Disheveled Consciousness: Alert, Vigilant (perhaps a little less so today) Orientation: Person, Place Motor Activity: Other (no abnormal motor movements noted) Speech: Unremarkable Language: Adequate Fund of Knowledge: Adequate Attention and Concentration: Easily Distracted Mood: Irritable (calmer) Affect: Irritable, Other (remains dysphoric) Thought Process & Associations: Other (less perseverative) Thought Content: Delusional Hallucination Type: Other (remains internally stimulated) Delusion Type: Paranoid Suicidal Ideation: No (unreliable to contract for safety) Homicidal Ideation: No (unreliable to contract for safety) Insight: Poor Judgment: Poor Results Labs Test 02/21/17 13:10 White Blood Count 4.5 TH/MM3 Red Blood Count 4.77 MIL/MM3 Hemoglobin 13.9 GM/DL Hematocrit 40.8 % Mean Corpuscular Volume 85.6 FL Mean Corpuscular Hemoglobin 29.2 PG Mean Corpuscular Hemoglobin Concent 34.1 % Red Cell Distribution Width 16.8 % Platelet Count 110 TH/MM3 Mean Platelet Volume 6.9 FL Neutrophils (%) (Auto) 50.9 % Lymphocytes (%) (Auto) 42.3 % Monocytes (%) (Auto) 3.4 % Eosinophils (%) (Auto) 2.8 % Basophils (%) (Auto) 0.6 % Neutrophils # (Auto) 2.3 TH/MM3 Lymphocytes # (Auto) 1.9 TH/MM3 Monocytes # (Auto) 0.2 TH/MM3 Eosinophils # (Auto) 0.1 TH/MM3 Basophils # (Auto) 0.0 TH/MM3 CBC Comment DIFF FINAL Differential Comment Vitamin B12 Level 405 PG/ML Thyroid Stimulating Hormone 3rd Gen 1.700 uIU/ML Rapid Plasma Reagin NON-REACTIVE Labs reviewed. Worsening thrombocytopenia noted. Last Impressions Head CT 02/22/17 0000 Signed Impressions: Service Date/Time: Wednesday, February 22, 2017 14:20 - CONCLUSION: 1. No evidence of acute intracranial pathology. No masses are identified. Hiren Kearns MD Vitals/IOs Vital Signs Date Time Temp Pulse Resp B/P (MAP) Pulse Ox O2 Delivery O2 Flow Rate FiO2 02/22/17 06:13 98.4 73 18 119/70 (86) 95 02/18/17 18:39 Room Air Assessment & Plan Problem List: (1) Other psychotic disorder not due to a substance or known physiological condition ICD Codes: F28 - Other psychotic disorder not due to a substance or known physiological condition Assessment & Plan Start Abilify 5mg daily with plans to titrate to effect. Since this agent as a partial dopamine agonist, it is generally thought to have less effect on prolactin levels. I will check a baseline prolactin. I note that the hospitalist has some concerns that Zyprexa may be exacerbating thrombocytopenia , and I will taper Zyprexa to 10 mg at bedtime tonight. Weekend rounding physician, please consider continuing to cross taper Zyprexa to Abilify. Trend platelet count through the weekend and consider hematology consultation. Continue to monitor on the high acuity unit. Continue other medications and care as ordered. Justification for Cont. Inpt. Med changes. Potential complicating conditions. Impairment in reality construction. High risk for decompensation and less restrictive environment. Discharge Planning Pending psychiatric stabilization. Counselor relates that sister wishes to have the patient return home once psychiatrically stable. Request HC Surrog/Guard Advoc?: Yes Hiren Castillo MD Feb 22, 2017 10:58
--- NOTE | 2017-02-22 11:41 | PD.TTN ---
Patient Problems 1. Discharge planning 2. Medication compliance 3. Knowledge deficit 4. Lack of coping skills Progress Toward Goals Provider Present: Dr. Alfonso Castillo Provider Input: 02-18-17 - Dr. Castillo reported the patientis sexually preoccupied. 02/22- Pt remains psychotic and medication regiment will be adjusted to include possibly Haldol or Prolixin. Psychiatric Counselors Present: Emily Waggoner [facility] Psych Therapist Input: This patient is new to this counselor and will be seen today after treatment team meeting. 02/22 Pt remains psychotic, paranoid, guarded, easily agitated and with poor insight. He has been compliant with medication regiment but is hesistant with regard to medication. He presents with limited insight into condition and need for care. Pt appears to be struggling to implement coping and emotional regulation skills to manage distress. He will return to sister's home after discharge though he remains paranoid of her at this time. Group Spec/RT/OT/BIGGS Present: Felicity Parson, ESMER Group Spec/RT/OT/BIGGS Input: Patient isolates to his room and will need encouragement to participate in group activities. Discharge Plan SMA Pt will be discharged home to sister's house and will be linked to outpatient follow up psychiatric services. Documentation Scribe: William Urban William Schuler EWA Feb 22, 2017 11:41
[2017-02-22] MEDS: ARIPiprazole 5 MG TAB PO SCH (12:42)
--- NOTE | 2017-02-22 16:08 | RADRPT ---
EXAM DATE/TIME: 02/22/2017 14:20 [place] COMPARISON: CT BRAIN W/O CONTRAST, June 05, 2016, 19:00. INDICATIONS : Altered mental status with a history of seizure. RADIATION DOSE: 38.86 CTDIvol (mGy) MEDICAL HISTORY : Seizures. Hypertension. SURGICAL HISTORY : None. ENCOUNTER: Initial ACUITY: 3 days PAIN SCALE: 4/10 LOCATION: Bilateral cranial TECHNIQUE: Multiple contiguous axial images were obtained of the head. Using automated exposure control and adj ustment of the mA and/or kV according to patient size, radiation dose was kept as low as reasonably a chievable to obtain optimal diagnostic quality images. DICOM format image data is available electro nically for review and comparison. FINDINGS: CEREBRUM: The ventricles are normal for age. No evidence of midline shift, mass lesion, hemorrhage or acute in farction. No extra-axial fluid collections are seen. POSTERIOR FOSSA: The cerebellum and brainstem are intact. The 4th ventricle is midline. The cerebellopontine angle i s unremarkable. EXTRACRANIAL: The visualized portion of the orbits is intact. SKULL: The calvaria is intact. No evidence of skull fracture. CONCLUSION: 1. No evidence of acute intracranial pathology. No masses are identified. Hiren Kearns MD on February 22, 2017 at 16:06 Board Certified Radiologist. This report was verified electronically.
--- NOTE | 2017-02-22 17:30 | HHI.PR ---
Subjective Remarks Patient has no complaints. Patient denies cp/sob. Denies cough, abdominal pain, fevers. Objective Vitals Vital Signs Date Time Temp Pulse Resp B/P (MAP) Pulse Ox O2 Delivery O2 Flow Rate FiO2 02/22/17 06:13 98.4 73 18 119/70 (86) 95 02/21/17 18:04 98.0 78 18 127/77 (94) 99 Result Diagram: 02/21/17 1310 02/19/17 0730 Imaging Last Impressions Head CT 02/22/17 0000 Signed Impressions: Service Date/Time: Wednesday, February 22, 2017 14:20 - CONCLUSION: 1. No evidence of acute intracranial pathology. No masses are identified. Hiren Kearns MD Objective Remarks AAOx3 NAD PERRLA Clear lungs BL S1S2 RRR, no MRG Abdomen soft, nt, nd Medications and IVs Current Medications Medications (Trade) Dose Ordered Sig/Hugo Route Start Time Stop Time Status Last Admin (Benadryl) 50 mg HS PRN PO 02/18/17 20:30 02/18/17 21:32 (Tylenol) 650 mg Q4H PRN PO 02/18/17 20:30 (Milk Of Magnesia Liq) 30 ml DAILY PRN PO 02/18/17 20:30 (Mag-Al Plus Susp Liq) 30 ml Q6H PRN PO 02/18/17 20:30 (Habitrol 21 Mg Patch.24 Hr) 1 patch DAILY PRN T-DERMAL 02/18/17 20:30 02/20/17 08:24 (Atarax) 50 mg Q6H PRN PO 02/18/17 20:30 02/21/17 17:00 (Cogentin) 1 mg Q12H PRN PO 02/18/17 20:30 (Cogentin Inj) 1 mg Q12H PRN IM 02/18/17 20:30 (Catapres) 0.1 mg Q8HR PRN PO 02/19/17 07:30 02/19/17 11:26 (Dolophine) 20 mg Q8HR PO 02/19/17 14:00 02/22/17 12:42 (Percocet 10-325 Mg) 1 tab Q6H PRN PO 02/19/17 12:30 (ZyPREXA INJ) 10 mg HS PRN IM 02/19/17 13:00 (D50w (Vial) Inj) 50 ml UNSCH PRN IV PUSH 02/20/17 18:30 (Glucagon Inj) 1 mg UNSCH PRN OTHER 02/20/17 18:30 (NovoLOG SUPPLEMENTAL SCALE) 1 ACHS SLIDING SCALE SQ 02/20/17 21:00 02/20/17 21:00 (Prinivil) 20 mg DAILY PO 02/21/17 09:00 02/22/17 08:18 (Glucophage) 500 mg BIDPC PO 02/21/17 09:00 02/22/17 17:34 (Abilify) 5 mg DAILY PO 02/22/17 12:00 02/22/17 12:42 (ZyPREXA ZYDIS ODT) 10 mg HS PO 02/22/17 21:00 A/P Problem List: (1) Other psychotic disorder not due to a substance or known physiological condition ICD Code: F28 - Other psychotic disorder not due to a substance or known physiological condition Plan: Management as per psychiatry. The patient currently on Zyprexa. B12 normal normal tsh RPR non reactive repeat head ct negative. (2) Prediabetes ICD Code: R73.03 - Prediabetes Plan: Patient noted to be hypoglycemic. Hemoglobin A1c 6.1. The patient is a prediabetic. Continue Metformin and statin - patient tolerating medications well. (3) HTN (hypertension) ICD Code: I10 - Essential (primary) hypertension Plan: Blood pressure seems to be persistently elevated. I will start the patient on lisinopril 20 mg by mouth daily and adjust accordingly. 02/21 BP more stable. Continue lisinopril 20 mg po daily. (4) Thrombocytopenia ICD Code: D69.6 - Thrombocytopenia, unspecified Plan: 02/21 Patients has a platelet count of 136 k trending down to 110 k today. Upon review of medical records patient had a platelet count of 159K on 06/05/16. Labs pending. (5) Hyperlipidemia ICD Code: E78.5 - Hyperlipidemia, unspecified Plan: Lipid profile shows elevated service was 173, total cholesterol 190, LDL cholesterol 111, HDL cholesterol 44. Continue statin given that LDL target should be less than 100 for diabetic patients. (6) Smoking ICD Code: F17.200 - Nicotine dependence, unspecified, uncomplicated Plan: Advised smoking cessation. Continue nicotine patch. Assessment and Plan DVT prophylaxis - Encourage ambulation Discharge Planning Continue to follow-up platelets. Problem Qualifiers (1) Hyperlipidemia: Qualified Codes: E78.5 - Hyperlipidemia, unspecified Harry Connelly MD Feb 22, 2017 17:30
[2017-02-22 18:00] VITALS: BP 127/76; PULSE 79; RESP 18; TEMP 97.7; O2SAT 99
[2017-02-22 18:30] LABS: HEMATOCRIT 38.6 % (39.0-51.0); MEAN CELL VOLUME 85.9 FL (80.0-100.0); MEAN CORPUSCULAR HEMOGLOBIN 29.3 PG (27.0-34.0); MEAN CORPUSCULAR HGB CONC 34.1 % (32.0-36.0); PLATELET COUNT 91 TH/MM3 (150-450); RED BLOOD COUNT 4.49 MIL/MM3 (4.50-5.90); RED CELL DISTRIBUTION WIDTH 16.4 % (11.6-17.2); WHITE BLOOD COUNT 4.7 TH/MM3 (4.0-11.0)
[2017-02-22 19:08] LABS: REVIEW FLAG FINAL
[2017-02-22] MEDS ORDERED: OLANZapine ODT 20 MG TAB PO SCH (21:00)
[2017-02-23] MEDS: METHADONE HCL 10 MG TAB PO SCH ×3 (05:55→21:09)
[2017-02-23 05:58] VITALS: BP 133/62; PULSE 72; RESP 18; TEMP 97.6; O2SAT 96
[2017-02-23] MEDS: metFORMIN HCL 500 MG TAB PO SCH ×2 (07:46→16:40)
[2017-02-23] MEDS: ARIPiprazole 5 MG TAB PO SCH (07:46)
[2017-02-23] MEDS: LISINOPRIL 20 MG TAB PO SCH (07:47)
[2017-02-23] MEDS: INSULIN ASPART SUPPLEMENTAL SCALE SQ SCH ×4 (07:58→20:19)
[2017-02-23] MEDS: oxyCODONE/ACETAMINOPHEN 10 MG/325 MG TAB PO PRN ×3 (09:54→23:22)
[2017-02-23 10:02] LABS: AUTOMATED NEUTROPHIL # 1.7 TH/MM3 (1.8-7.7); BASOPHIL % 0.4 % (0.0-2.0); EOSINOPHIL # 0.1 TH/MM3 (0-0.4); EOSINOPHIL % 3.2 % (0.0-4.0); HEMATOCRIT 39.7 % (39.0-51.0); LYMPH % 47.3 % (9.0-44.0); LYMPHOCYTE # 1.7 TH/MM3 (1.0-4.8); MEAN CORPUSCULAR HEMOGLOBIN 28.9 PG (27.0-34.0); MONO % 3.5 % (0.0-8.0); NEUT % 45.6 % (16.0-70.0); PLATELET COUNT 89 TH/MM3 (150-450); RED BLOOD COUNT 4.67 MIL/MM3 (4.50-5.90); RED CELL DISTRIBUTION WIDTH 16.1 % (11.6-17.2); WHITE BLOOD COUNT 3.7 TH/MM3 (4.0-11.0)
[2017-02-23 10:04] LABS: HEMO FLAGS AUTO DIFF
[2017-02-23 10:35] LABS: OVALOCYTES 1+ (NORMAL); PLATELET ESTIMATE SMEAR LOW (NORMAL); PLATELET MORPHOLOGY NORMAL (NORMAL); SCAN/DIFF AUTO DIFF CONFIRMED
--- NOTE | 2017-02-23 16:16 | HHI.PYPN ---
Subjective Chief Complaint: Psychosis Remarks Patient was seen and case discussed with nursing. Patient is elevated, irritable with fast rapid pressured speech and flight of ideas. Otherwise, he is behaving well on the unit. Preoccupied with a visit he had with the sister. Insight is poor. Progress note reviewed from yesterday where treating psychiatrist is conducting a cross taper to Abilify. Patient remains with thrombocytopenia Mental Status Examination Appearance: Disheveled Consciousness: Alert, Vigilant (perhaps a little less so today) Orientation: Person, Place Motor Activity: Other (no abnormal motor movements noted) Speech: Pressured, Rapid Language: Adequate Fund of Knowledge: Adequate Attention and Concentration: Easily Distracted Mood: Irritable (calmer) Affect: Irritable, Other (remains dysphoric) Thought Process & Associations: Other (less perseverative) Thought Content: Delusional Hallucination Type: Other (remains internally stimulated) Delusion Type: Paranoid Suicidal Ideation: No (unreliable to contract for safety) Suicidal Plan: No Suicidal Intention: No Homicidal Ideation: No (unreliable to contract for safety) Insight: Poor Judgment: Poor Results Labs Test 02/22/17 18:06 02/23/17 09:45 White Blood Count 4.7 TH/MM3 3.7 TH/MM3 Red Blood Count 4.49 MIL/MM3 4.67 MIL/MM3 Hemoglobin 13.1 GM/DL 13.5 GM/DL Hematocrit 38.6 % 39.7 % Mean Corpuscular Volume 85.9 FL 85.0 FL Mean Corpuscular Hemoglobin 29.3 PG 28.9 PG Mean Corpuscular Hemoglobin Concent 34.1 % 34.0 % Red Cell Distribution Width 16.4 % 16.1 % Platelet Count 91 TH/MM3 89 TH/MM3 Mean Platelet Volume 7.2 FL 6.6 FL Neutrophils (%) (Auto) 45.6 % Lymphocytes (%) (Auto) 47.3 % Monocytes (%) (Auto) 3.5 % Eosinophils (%) (Auto) 3.2 % Basophils (%) (Auto) 0.4 % Neutrophils # (Auto) 1.7 TH/MM3 Lymphocytes # (Auto) 1.7 TH/MM3 Monocytes # (Auto) 0.1 TH/MM3 Eosinophils # (Auto) 0.1 TH/MM3 Basophils # (Auto) 0.0 TH/MM3 CBC Comment AUTO DIFF Differential Comment AUTO DIFF CONFIRMED Platelet Estimate LOW Platelet Morphology Comment NORMAL Ovalocytes 1+ Vitals/IOs Vital Signs Date Time Temp Pulse Resp B/P (MAP) Pulse Ox O2 Delivery O2 Flow Rate FiO2 02/23/17 11:25 18 02/23/17 05:58 97.6 72 133/62 (85) 96 Assessment & Plan Problem List: (1) Other psychotic disorder not due to a substance or known physiological condition ICD Codes: F28 - Other psychotic disorder not due to a substance or known physiological condition Assessment & Plan Decrease Zyprexa to 5 mg by mouth daily at bedtime, increase Abilify to 10 mg daily, hematology consult, repeat CBC tomorrow Justification for Cont. Inpt. Patient would decompensate in a less restrictive setting Request HC Surrog/Guard Advoc?: Yes Neville Gonzalez DO Feb 23, 2017 16:16
[2017-02-23 18:12] VITALS: BP 99/74; PULSE 89; RESP 18; TEMP 98.2; O2SAT 90
[2017-02-23] MEDS ORDERED: OLANZapine ODT 5 MG TAB PO SCH (21:00)
[2017-02-23] MEDS: diphenhydrAMINE HCL 50 MG CAP PO PRN (23:22)
[2017-02-24] MEDS: METHADONE HCL 10 MG TAB PO SCH ×3 (05:41→21:22)
--- NOTE | 2017-02-24 05:43 | MB ---
cc: JOSIE NEGRETE M.D. DATE OF CONSULTATION: 02/23/2017 REASON FOR CONSULTATION: Consult requested by psychiatrist for evaluation of leukopenia and thrombocytopenia. HISTORY OF PRESENT ILLNESS: Ki is a 56-year-old male. He is admitted to the psychiatric call with suicidal ideation and threat against his sister. Blood test on admission, February 18, showed the CBC was normal with a platelet count was 136. Two days ago the platelet count dropped to 110, yesterday the platelet count dropped to 91 and today it is 89. The white count today also dropped to 3.7. The absolute neutrophil count is 1700. Because of the thrombocytopenia and leukopenia with neutropenia, I have been asked to see him for further evaluation. The patient is not a good historian. He denies any previous history of leukopenia and thrombocytopenia. He is not bleeding. He has suicidal ideation. His urine tox screen is positive for cannabinoids. The alcohol is less than 3. The rest of the review of systems is negative. PAST MEDICAL HISTORY: Psychiatric disorder. PAST SURGICAL HISTORY: None reported. ALLERGIES: NONE. MEDICATIONS: Prior to coming to the hospital: 1. Androgen gel. 2. Percocet. 3. Methadone 4. Viagra. FAMILY HISTORY: No family history of malignancy or blood disorder. SOCIAL HISTORY: The patient does not smoke cigarettes, does not drink alcohol. PHYSICAL EXAMINATION: The patient is a well-developed, well-nourished white male in no apparent distress. Vital signs: Temperature 98.2, heart rate is 89, blood pressure is 99/74, O2 saturation 98% on room air. HEENT: PERRLA, EOMI, anicteric. No oral lesions noted. Neck: No lymphadenopathy noted. Lungs are clear. No wheezing, rhonchi or rales. Heart is regular rate and rhythm. Abdomen is soft, nontender. No hepatosplenomegaly. Extremities: No pedal edema. Neurology: Awake, alert, oriented times three. Skin: No significant lesions noted. ASSESSMENT: Leukopenia with neutropenia and thrombocytopenia. This is most likely due to bone marrow suppression either from some sort of infection, medications or some underlying bone marrow pathology. PLAN: I have reviewed his available records. I have discussed with the patient regarding the neutropenia with thrombocytopenia. On his admission the CBC was normal except the platelet count was mildly low at 136. Gradually his platelet count dropped to 110 to 91 to 89. White count was normal and now it is 3.7. The differential count was normal but now it is significant for mild neutropenia of 1700. This is most likely due to bone marrow suppression. The cause of bone marrow suppression is unknown at the present time. I have initiated a workup for the leukopenia and thrombocytopenia. Based on those blood test results will decide further workup to find the cause of the neutropenia and thrombocytopenia. The patient is not currently symptomatic from that and my recommendation is to continue to monitor his CBC. Thank you for asking my opinion. MD GINA Yao/SANDRA /1:01 AM /5:27 AM
[2017-02-24 06:13] VITALS: BP 132/70; PULSE 90; RESP 17; TEMP 97.6; O2SAT 98
[2017-02-24] MEDS: INSULIN ASPART SUPPLEMENTAL SCALE SQ SCH ×4 (08:00→20:17)
[2017-02-24] MEDS: NICOTINE 21 MG/24 HR PATCH T-DERMAL PRN (08:52)
[2017-02-24] MEDS: LISINOPRIL 20 MG TAB PO SCH (08:53)
[2017-02-24] MEDS: metFORMIN HCL 500 MG TAB PO SCH ×2 (08:53→17:26)
[2017-02-24] MEDS ORDERED: ARIPiprazole 5 MG TAB PO SCH (09:00)
[2017-02-24 10:15] LABS: AUTOMATED NEUTROPHIL # 1.8 TH/MM3 (1.8-7.7); BASOPHIL % 0.6 % (0.0-2.0); EOSINOPHIL # 0.1 TH/MM3 (0-0.4); EOSINOPHIL % 3.6 % (0.0-4.0); HEMATOCRIT 39.4 % (39.0-51.0); LYMPH % 42.6 % (9.0-44.0); LYMPHOCYTE # 1.6 TH/MM3 (1.0-4.8); MEAN CELL VOLUME 86.1 FL (80.0-100.0); MEAN CORPUSCULAR HEMOGLOBIN 29.6 PG (27.0-34.0); MEAN CORPUSCULAR HGB CONC 34.4 % (32.0-36.0); MONO % 3.1 % (0.0-8.0); NEUT % 50.1 % (16.0-70.0); PLATELET COUNT 91 TH/MM3 (150-450); RED BLOOD COUNT 4.57 MIL/MM3 (4.50-5.90); RED CELL DISTRIBUTION WIDTH 16.2 % (11.6-17.2); WHITE BLOOD COUNT 3.7 TH/MM3 (4.0-11.0)
[2017-02-24 10:22] LABS: HEMO FLAGS AUTO DIFF
[2017-02-24 10:36] LABS: RHEUMATOID FACTOR TRIGGER LESS THAN 10.0 IU/ML (0.0-14.9)
[2017-02-24 10:40] LABS: ALT (GPT) 18 U/L (12-78); ANION GAP 7 MEQ/L (5-15); AST (GOT) 14 U/L (15-37); BICARBONATE 32.2 MEQ/L (21.0-32.0); BLOOD UREA NITROGEN 17 MG/DL (7-18); CHLORIDE 98 MEQ/L (98-107); GLOMERULAR FILTRATION RATE 67 ML/MIN (>89); POTASSIUM 4.6 MEQ/L (3.5-5.1); SODIUM (NA) 137 MEQ/L (136-145)
[2017-02-24 10:43] LABS: ALKALINE PHOSPHATASE 87 U/L (45-117); TOTAL BILIRUBIN ADULT 0.5 MG/DL (0.2-1.0)
[2017-02-24 11:07] LABS: FERRITIN 161 NG/ML (26-388); LDH SERUM 150 U/L (87-241); TOTAL PROTEIN SPE 6.9 GM/DL (6.0-7.6); TRANSFERRIN IRON PROFILE 221 MG/DL (200-360)
[2017-02-24 11:16] LABS: PLATELET ESTIMATE SMEAR LOW (NORMAL); PLATELET MORPHOLOGY NORMAL (NORMAL); SCAN/DIFF AUTO DIFF CONFIRMED
--- NOTE | 2017-02-24 16:35 | HHI.PYPN ---
Subjective Chief Complaint: Psychosis Remarks Patient was seen and case discussed with nursing. Patient is pleasant and cooperative with exam. He appears slightly less pressured compared to yesterday. Nursing notes an improvement in behavior. He is tolerating the medication changes well. He does remain focused on his sister. Mental Status Examination Appearance: Disheveled Consciousness: Alert, Vigilant (perhaps a little less so today) Orientation: Person, Place Motor Activity: Other (no abnormal motor movements noted) Speech: Pressured, Rapid Language: Adequate Fund of Knowledge: Adequate Attention and Concentration: Easily Distracted Mood: Irritable (calmer) Affect: Irritable, Other (remains dysphoric) Thought Process & Associations: Other (less perseverative) Thought Content: Delusional Hallucination Type: Other (remains internally stimulated) Delusion Type: Paranoid Suicidal Ideation: No (unreliable to contract for safety) Suicidal Plan: No Suicidal Intention: No Homicidal Ideation: No (unreliable to contract for safety) Insight: Poor Judgment: Poor Results Labs Test 02/24/17 09:40 White Blood Count 3.7 TH/MM3 Red Blood Count 4.57 MIL/MM3 Hemoglobin 13.5 GM/DL Hematocrit 39.4 % Mean Corpuscular Volume 86.1 FL Mean Corpuscular Hemoglobin 29.6 PG Mean Corpuscular Hemoglobin Concent 34.4 % Red Cell Distribution Width 16.2 % Platelet Count 91 TH/MM3 Mean Platelet Volume 7.3 FL Neutrophils (%) (Auto) 50.1 % Lymphocytes (%) (Auto) 42.6 % Monocytes (%) (Auto) 3.1 % Eosinophils (%) (Auto) 3.6 % Basophils (%) (Auto) 0.6 % Neutrophils # (Auto) 1.8 TH/MM3 Lymphocytes # (Auto) 1.6 TH/MM3 Monocytes # (Auto) 0.1 TH/MM3 Eosinophils # (Auto) 0.1 TH/MM3 Basophils # (Auto) 0.0 TH/MM3 CBC Comment AUTO DIFF Differential Comment AUTO DIFF CONFIRMED Platelet Estimate LOW Platelet Morphology Comment NORMAL Blood Smear Pathologist Review Haptoglobin 204 MG/DL Blood Urea Nitrogen 17 MG/DL Creatinine 1.13 MG/DL Random Glucose 116 MG/DL Total Protein 7.1 GM/DL Albumin 3.8 GM/DL Calcium Level 9.7 MG/DL Alkaline Phosphatase 87 U/L Aspartate Amino Transf (AST/SGOT) 14 U/L Alanine Aminotransferase (ALT/SGPT) 18 U/L Total Bilirubin 0.5 MG/DL Sodium Level 137 MEQ/L Potassium Level 4.6 MEQ/L Chloride Level 98 MEQ/L Carbon Dioxide Level 32.2 MEQ/L Anion Gap 7 MEQ/L Estimat Glomerular Filtration Rate 67 ML/MIN Iron Level 117 MCG/DL Total Iron Binding Capacity 309 MCG/DL Percent Iron Saturation 37.8 % Ferritin 161 NG/ML Lactate Dehydrogenase 150 U/L Vitamin B12 Level 390 PG/ML Folate 18.5 NG/ML Rheumatoid Factor Screen NEGATIVE Rheumatoid Factor Titer IU/ML Vitals/IOs Vital Signs Date Time Temp Pulse Resp B/P (MAP) Pulse Ox O2 Delivery O2 Flow Rate FiO2 02/24/17 06:13 97.6 90 17 132/70 (90) 98 Assessment & Plan Problem List: (1) Other psychotic disorder not due to a substance or known physiological condition ICD Codes: F28 - Other psychotic disorder not due to a substance or known physiological condition Assessment & Plan DC Zyprexa and increase Abilify to 15 mg by mouth every morning. Continue medical treatment as indicated. Including the workup by the bike designer Justification for Cont. Inpt. Patient would decompensate in a less restrictive setting Request HC Surrog/Guard Advoc?: Yes Neville Gonzalez DO Feb 24, 2017 16:35
[2017-02-24 17:16] VITALS: BP 124/72; PULSE 69; RESP 18; TEMP 98; O2SAT 100
--- NOTE | 2017-02-24 18:11 | PD.ONC.PN ---
Subjective Subjective Remarks no new c/o Objective Data Date Time Temp Pulse Resp B/P (MAP) Pulse Ox O2 Delivery O2 Flow Rate FiO2 02/24/17 17:16 98.0 69 18 124/72 (89) 100 02/24/17 06:13 97.6 90 17 132/70 (90) 98 02/23/17 18:12 98.2 89 18 99/74 (82) 90 Result Diagram: 02/24/17 0940 02/24/17 0940 Laboratory Results Laboratory Tests Test 02/24/17 09:40 White Blood Count 3.7 TH/MM3 Red Blood Count 4.57 MIL/MM3 Hemoglobin 13.5 GM/DL Hematocrit 39.4 % Mean Corpuscular Volume 86.1 FL Mean Corpuscular Hemoglobin 29.6 PG Mean Corpuscular Hemoglobin Concent 34.4 % Red Cell Distribution Width 16.2 % Platelet Count 91 TH/MM3 Mean Platelet Volume 7.3 FL Neutrophils (%) (Auto) 50.1 % Lymphocytes (%) (Auto) 42.6 % Monocytes (%) (Auto) 3.1 % Eosinophils (%) (Auto) 3.6 % Basophils (%) (Auto) 0.6 % Neutrophils # (Auto) 1.8 TH/MM3 Lymphocytes # (Auto) 1.6 TH/MM3 Monocytes # (Auto) 0.1 TH/MM3 Eosinophils # (Auto) 0.1 TH/MM3 Basophils # (Auto) 0.0 TH/MM3 CBC Comment AUTO DIFF Differential Comment AUTO DIFF CONFIRMED Platelet Estimate LOW Platelet Morphology Comment NORMAL Blood Smear Pathologist Review Haptoglobin 204 MG/DL Blood Urea Nitrogen 17 MG/DL Creatinine 1.13 MG/DL Random Glucose 116 MG/DL Total Protein 7.1 GM/DL Albumin 3.8 GM/DL Calcium Level 9.7 MG/DL Alkaline Phosphatase 87 U/L Aspartate Amino Transf (AST/SGOT) 14 U/L Alanine Aminotransferase (ALT/SGPT) 18 U/L Total Bilirubin 0.5 MG/DL Sodium Level 137 MEQ/L Potassium Level 4.6 MEQ/L Chloride Level 98 MEQ/L Carbon Dioxide Level 32.2 MEQ/L Anion Gap 7 MEQ/L Estimat Glomerular Filtration Rate 67 ML/MIN Iron Level 117 MCG/DL Total Iron Binding Capacity 309 MCG/DL Percent Iron Saturation 37.8 % Ferritin 161 NG/ML Lactate Dehydrogenase 150 U/L Vitamin B12 Level 390 PG/ML Folate 18.5 NG/ML Rheumatoid Factor Screen NEGATIVE Rheumatoid Factor Titer IU/ML Administered Medications Medications (Trade) Dose Ordered Sig/Hugo Route PRN Reason Start Time Stop Time Status Last Admin Dose Admin Diphenhydramine HCl (Benadryl) 50 mg HS PRN PO INSOMNIA 02/18/17 20:30 02/23/17 23:22 Nicotine (Habitrol 21 Mg Patch.24 Hr) 1 patch DAILY PRN T-DERMAL Nicotine craving 02/18/17 20:30 02/24/17 08:52 Hydroxyzine HCl (Atarax) 50 mg Q6H PRN PO ANXIETY 02/18/17 20:30 02/21/17 17:00 Clonidine (Catapres) 0.1 mg Q8HR PRN PO SBP>180 or DBP>100 02/19/17 07:30 02/19/17 11:26 Methadone HCl (Dolophine) 20 mg Q8HR PO 02/19/17 14:00 02/24/17 14:35 Oxycodone/ Acetaminophen (Percocet 10-325 Mg) 1 tab Q6H PRN PO PAIN SCALE 7 TO 10 02/19/17 12:30 02/23/17 23:22 Insulin Aspart (NovoLOG SUPPLEMENTAL SCALE) 1 ACHS SLIDING SCALE SQ 02/20/17 21:00 02/20/17 21:00 Lisinopril (Prinivil) 20 mg DAILY PO 02/21/17 09:00 02/24/17 08:53 Metformin HCl (Glucophage) 500 mg BIDPC PO 02/21/17 09:00 02/24/17 17:26 Objective Remarks GENERAL: Well-nourished, well-developed patient. SKIN: Warm and dry. HEAD: Normocephalic. EYES: No scleral icterus. No injection or drainage. NECK: Supple, trachea midline. No JVD or lymphadenopathy. LYMPHATIC: No adenopathy. CARDIOVASCULAR: Regular rate and rhythm without murmurs. RESPIRATORY: Breath sounds equal bilaterally. No accessory muscle use. GASTROINTESTINAL: Abdomen soft, non-tender, nondistended. EXTREMITIES: No cyanosis, or edema. NEUROLOGICAL: No obvious focal deficit. Awake, alert, and oriented x3. Assessment/Plan Problem List: (1) Thrombocytopenia ICD Codes: D69.6 - Thrombocytopenia, unspecified Plan: plat low but stable. NO bleeding. w/u order, result pending. Bayron Umaña MD Feb 24, 2017 18:11
[2017-02-24] MEDS: oxyCODONE/ACETAMINOPHEN 10 MG/325 MG TAB PO PRN (21:12)
[2017-02-24] MEDS: diphenhydrAMINE HCL 50 MG CAP PO PRN (21:22)
[2017-02-25] MEDS: METHADONE HCL 10 MG TAB PO SCH ×3 (05:03→21:19)
[2017-02-25 05:42] VITALS: BP 117/77; PULSE 75; RESP 17; TEMP 97.5; O2SAT 93
[2017-02-25] MEDS: INSULIN ASPART SUPPLEMENTAL SCALE SQ SCH ×3 (08:00→16:52)
--- NOTE | 2017-02-25 08:40 | HHI.PYPN ---
Subjective Chief Complaint: Psychosis Remarks Patient seen and examined with nurse. Chart reviewed. Case discussed with nursing staff notes that the patient is more relevant in his conversation. On my examination today, the patient seems considerably calmer and less irritable since we switched from Zyprexa to Abilify. I also note that his blood counts have improved off of Zyprexa. The patient says that he visited with his sister over the weekend. He continues to articulate some paranoid beliefs regarding his sister although these are considerably attenuated. He denies any suicidal or homicidal ideation. He does complain of some mild stiffness and clumsy speech since starting Abilify. He has some mild cogwheeling but declines medication to counteract this side-effect, noting that it is mild. No other side effects or physical complaints. Review of Systems ROS Limitations: Psychotic (lessening) Except as stated in HPI: all other systems reviewed are Neg Mental Status Examination Appearance: Disheveled (grooming is improved today) Consciousness: Alert Orientation: Person, Place Motor Activity: Other (no motor abnormalities noted) Speech: Unremarkable Language: Adequate Fund of Knowledge: Adequate Attention and Concentration: Adequate Memory: Unremarkable Mood: Other (considerably calmer) Affect: Other (considerably less dysphoric and irritable) Thought Process & Associations: Other (less perseverative) Thought Content: Delusional (lessening) Hallucination Type: None Delusion Type: Paranoid (less) Suicidal Ideation: No Homicidal Ideation: No Insight: Poor Judgment: Poor Results Labs Test 02/24/17 09:40 White Blood Count 3.7 TH/MM3 Red Blood Count 4.57 MIL/MM3 Hemoglobin 13.5 GM/DL Hematocrit 39.4 % Mean Corpuscular Volume 86.1 FL Mean Corpuscular Hemoglobin 29.6 PG Mean Corpuscular Hemoglobin Concent 34.4 % Red Cell Distribution Width 16.2 % Platelet Count 91 TH/MM3 Mean Platelet Volume 7.3 FL Neutrophils (%) (Auto) 50.1 % Lymphocytes (%) (Auto) 42.6 % Monocytes (%) (Auto) 3.1 % Eosinophils (%) (Auto) 3.6 % Basophils (%) (Auto) 0.6 % Neutrophils # (Auto) 1.8 TH/MM3 Lymphocytes # (Auto) 1.6 TH/MM3 Monocytes # (Auto) 0.1 TH/MM3 Eosinophils # (Auto) 0.1 TH/MM3 Basophils # (Auto) 0.0 TH/MM3 CBC Comment AUTO DIFF Differential Comment AUTO DIFF CONFIRMED Platelet Estimate LOW Platelet Morphology Comment NORMAL Blood Smear Pathologist Review Haptoglobin 204 MG/DL Blood Urea Nitrogen 17 MG/DL Creatinine 1.13 MG/DL Random Glucose 116 MG/DL Total Protein 7.1 GM/DL Albumin 3.8 GM/DL Calcium Level 9.7 MG/DL Alkaline Phosphatase 87 U/L Aspartate Amino Transf (AST/SGOT) 14 U/L Alanine Aminotransferase (ALT/SGPT) 18 U/L Total Bilirubin 0.5 MG/DL Sodium Level 137 MEQ/L Potassium Level 4.6 MEQ/L Chloride Level 98 MEQ/L Carbon Dioxide Level 32.2 MEQ/L Anion Gap 7 MEQ/L Estimat Glomerular Filtration Rate 67 ML/MIN Iron Level 117 MCG/DL Total Iron Binding Capacity 309 MCG/DL Percent Iron Saturation 37.8 % Ferritin 161 NG/ML Lactate Dehydrogenase 150 U/L Vitamin B12 Level 390 PG/ML Folate 18.5 NG/ML Rheumatoid Factor Screen NEGATIVE Rheumatoid Factor Titer IU/ML Labs reviewed. I note that thrombocytopenia is improved off of Zyprexa. Extended urine toxicology was positive for methadone and cannabinoids. Vitals/IOs Vital Signs Date Time Temp Pulse Resp B/P (MAP) Pulse Ox O2 Delivery O2 Flow Rate FiO2 02/25/17 05:42 97.5 75 17 117/77 (90) 93 Assessment & Plan Problem List: (1) Other psychotic disorder not due to a substance or known physiological condition ICD Codes: F28 - Other psychotic disorder not due to a substance or known physiological condition Assessment & Plan Titrate Abilify to 20mg daily to target residual psychotic symptoms. This agent seems much more efficacious for patient's symptoms than Zyprexa was. To consider long-acting injectable Abilify. I have added possible thrombocytopenia from Zyprexa as an adverse reaction. Continue to monitor on high acuity unit. Continue other medications and care as ordered. Justification for Cont. Inpt. Med changes. Resolving impairment in reality construction. High risk for decompensation in less restrictive environment. Discharge Planning Pending psychiatric stabilization. Possible discharge later this week. Request HC Surrog/Guard Advoc?: Yes Hiren Castillo MD Feb 25, 2017 08:40
[2017-02-25] MEDS: LISINOPRIL 20 MG TAB PO SCH (08:51)
[2017-02-25] MEDS: metFORMIN HCL 500 MG TAB PO SCH ×2 (08:51→18:01)
[2017-02-25] MEDS ORDERED: ARIPiprazole 15 MG TAB PO SCH (09:00)
[2017-02-25 09:37] LABS: AUTOMATED NEUTROPHIL # 1.9 TH/MM3 (1.8-7.7); BASOPHIL % 0.6 % (0.0-2.0); EOSINOPHIL # 0.2 TH/MM3 (0-0.4); EOSINOPHIL % 4.4 % (0.0-4.0); HEMATOCRIT 40.1 % (39.0-51.0); HEMO FLAGS DIFF FINAL; LYMPH % 49.3 % (9.0-44.0); LYMPHOCYTE # 2.3 TH/MM3 (1.0-4.8); MEAN CELL VOLUME 86.1 FL (80.0-100.0); MEAN CORPUSCULAR HEMOGLOBIN 29.3 PG (27.0-34.0); MONO % 3.8 % (0.0-8.0); NEUT % 41.9 % (16.0-70.0); PLATELET COUNT 106 TH/MM3 (150-450); RED BLOOD COUNT 4.65 MIL/MM3 (4.50-5.90); RED CELL DISTRIBUTION WIDTH 16.4 % (11.6-17.2); WHITE BLOOD COUNT 4.6 TH/MM3 (4.0-11.0)
[2017-02-25 09:58] LABS: ANION GAP 10 MEQ/L (5-15); AST (GOT) 22 U/L (15-37); BICARBONATE 30.3 MEQ/L (21.0-32.0); BLOOD UREA NITROGEN 19 MG/DL (7-18); CHLORIDE 97 MEQ/L (98-107); GLOMERULAR FILTRATION RATE 61 ML/MIN (>89); POTASSIUM 4.3 MEQ/L (3.5-5.1); SODIUM (NA) 137 MEQ/L (136-145)
[2017-02-25 10:02] LABS: ALKALINE PHOSPHATASE 87 U/L (45-117); ALT (GPT) 20 U/L (12-78); TOTAL BILIRUBIN ADULT 0.5 MG/DL (0.2-1.0)
[2017-02-25 12:33] LABS: OBMETHADONE UR POS (NEG)
[2017-02-25 12:34] LABS: BATH SALTS (MDPV) UR NEG (NEG); ECSTASY (MDMA) UR NEG (NEG); HEROIN (6-ACETYLMORPHINE) UR NEG (NEG); K2 SPICE UR NEG (NEG); OBGABAPENTIN UR NEG (NEG); OBHYDROMORPHONE U NEG (NEG); PHENCYCLIDINE URINE NEG (NEG)
[2017-02-25] MEDS: oxyCODONE/ACETAMINOPHEN 10 MG/325 MG TAB PO PRN (16:40)
[2017-02-25 16:55] LABS: ANA SCREEN NEG (NEG)
--- NOTE | 2017-02-25 18:20 | PD.ONC.PN ---
Subjective Subjective Remarks no c/o offer Objective Data Date Time Temp Pulse Resp B/P (MAP) Pulse Ox O2 Delivery O2 Flow Rate FiO2 02/25/17 05:42 97.5 75 17 117/77 (90 93 Result Diagram: 02/25/17 0840 02/25/17 0840 Laboratory Results Laboratory Tests Test 02/25/17 08:40 White Blood Count 4.6 TH/MM3 Red Blood Count 4.65 MIL/MM3 Hemoglobin 13.6 GM/DL Hematocrit 40.1 % Mean Corpuscular Volume 86.1 FL Mean Corpuscular Hemoglobin 29.3 PG Mean Corpuscular Hemoglobin Concent 34.0 % Red Cell Distribution Width 16.4 % Platelet Count 106 TH/MM3 Mean Platelet Volume 7.4 FL Neutrophils (%) (Auto) 41.9 % Lymphocytes (%) (Auto) 49.3 % Monocytes (%) (Auto) 3.8 % Eosinophils (%) (Auto) 4.4 % Basophils (%) (Auto) 0.6 % Neutrophils # (Auto) 1.9 TH/MM3 Lymphocytes # (Auto) 2.3 TH/MM3 Monocytes # (Auto) 0.2 TH/MM3 Eosinophils # (Auto) 0.2 TH/MM3 Basophils # (Auto) 0.0 TH/MM3 CBC Comment DIFF FINAL Differential Comment Blood Urea Nitrogen 19 MG/DL Creatinine 1.23 MG/DL Random Glucose 167 MG/DL Total Protein 7.5 GM/DL Albumin 3.8 GM/DL Calcium Level 9.5 MG/DL Alkaline Phosphatase 87 U/L Aspartate Amino Transf (AST/SGOT) 22 U/L Alanine Aminotransferase (ALT/SGPT) 20 U/L Total Bilirubin 0.5 MG/DL Sodium Level 137 MEQ/L Potassium Level 4.3 MEQ/L Chloride Level 97 MEQ/L Carbon Dioxide Level 30.3 MEQ/L Anion Gap 10 MEQ/L Estimat Glomerular Filtration Rate 61 ML/MIN Administered Medications Medications (Trade) Dose Ordered Sig/Hugo Route PRN Reason Start Time Stop Time Status Last Admin Dose Admin Diphenhydramine HCl (Benadryl) 50 mg HS PRN PO INSOMNIA 02/18/17 20:30 02/24/17 21:22 Nicotine (Habitrol 21 Mg Patch.24 Hr) 1 patch DAILY PRN T-DERMAL Nicotine craving 02/18/17 20:30 02/24/17 08:52 Hydroxyzine HCl (Atarax) 50 mg Q6H PRN PO ANXIETY 02/18/17 20:30 02/21/17 17:00 Clonidine (Catapres) 0.1 mg Q8HR PRN PO SBP>180 or DBP>100 02/19/17 07:30 02/19/17 11:26 Methadone HCl (Dolophine) 20 mg Q8HR PO 02/19/17 14:00 02/25/17 14:12 Oxycodone/ Acetaminophen (Percocet 10-325 Mg) 1 tab Q6H PRN PO PAIN SCALE 7 TO 10 02/19/17 12:30 02/25/17 16:40 Insulin Aspart (NovoLOG SUPPLEMENTAL SCALE) 1 ACHS SLIDING SCALE SQ 02/20/17 21:00 02/25/17 08:00 Lisinopril (Prinivil) 20 mg DAILY PO 02/21/17 09:00 02/25/17 08:51 Metformin HCl (Glucophage) 500 mg BIDPC PO 02/21/17 09:00 02/25/17 18:01 Objective Remarks GENERAL: Well-nourished, well-developed patient. SKIN: Warm and dry. HEAD: Normocephalic. EYES: No scleral icterus. No injection or drainage. NECK: Supple, trachea midline. No JVD or lymphadenopathy. LYMPHATIC: No adenopathy. CARDIOVASCULAR: Regular rate and rhythm without murmurs. RESPIRATORY: Breath sounds equal bilaterally. No accessory muscle use. GASTROINTESTINAL: Abdomen soft, non-tender, nondistended. EXTREMITIES: No cyanosis, or edema. NEUROLOGICAL: No obvious focal deficit. Awake, alert, and oriented x3. Assessment/Plan Problem List: (1) Thrombocytopenia ICD Codes: D69.6 - Thrombocytopenia, unspecified Plan: w/u for leucopenia and thrombocytopenia reviewed and it is negative. Leucopenia has resolved Thrombocytopenia is improving. Most likey has had BM suppression from zyprexa. zyprexa is switch over to abilify. continue to monitor cbc aByron Umaña MD Feb 25, 2017 18:19
[2017-02-25 18:49] VITALS: BP 148/73; PULSE 81; RESP 18; O2SAT 94
[2017-02-25] MEDS: diphenhydrAMINE HCL 50 MG CAP PO PRN (21:30)
[2017-02-25 22:36] LABS: ALBUMIN SPE 4.32 GM/DL (3.50-5.00); ALPHA 1 GLOBULIN 0.23 GM/DL (0.11-0.29); ALPHA 2 GLOBULIN 0.75 GM/DL (0.22-1.00); BETA GLOBULINS (SPE) 0.71 GM/DL (0.53-1.03)
[2017-02-26 05:48] VITALS: BP 125/66; PULSE 76; RESP 18; TEMP 98.5; O2SAT 95
[2017-02-26] MEDS: METHADONE HCL 10 MG TAB PO SCH ×3 (06:04→21:11)
[2017-02-26] MEDS: metFORMIN HCL 500 MG TAB PO SCH ×2 (08:03→17:10)
[2017-02-26] MEDS: LISINOPRIL 20 MG TAB PO SCH (08:03)
[2017-02-26] MEDS: REMOVE OLD NICODERM (NICOTINE) PATCH T-DERMAL SCH (08:03)
[2017-02-26] MEDS: oxyCODONE/ACETAMINOPHEN 10 MG/325 MG TAB PO PRN (08:13)
[2017-02-26] MEDS ORDERED: ARIPiprazole 10 MG TAB PO SCH (09:00)
--- NOTE | 2017-02-26 10:58 | HHI.PR ---
Subjective Remarks Patient has been transitioned from Zyprexa to Abilify for possible correlation with thrombocytopenia. Thrombocytopenia now improving. Patient is asymptomatic and expresses no complaints today. Objective Vital Signs Date Time Temp Pulse Resp B/P (MAP) Pulse Ox O2 Delivery O2 Flow Rate FiO2 02/26/17 05:48 98.5 76 18 125/66 (85) 95 02/25/17 18:49 81 18 148/73 (98) 94 I/O 02/25/17 02/25/17 02/25/17 02/26/17 02/26/17 02/26/17 07:00 15:00 23:00 07:00 15:00 23:00 Intake Total 360 ml Balance 360 ml Intake Oral 360 ml Result Diagram: 02/25/1783902/25/17839 Objective Remarks GENERAL: NAD, A&Ox3 HEAD: Normocephalic. NECK: Supple, trachea midline. No lymphadenopathy. EYES: No scleral icterus. No injection or drainage. CARDIOVASCULAR: Regular rate and rhythm without murmurs, gallops, or rubs. RESPIRATORY: Breath sounds equal bilaterally. No accessory muscle use. GASTROINTESTINAL: Abdomen soft, non-tender, nondistended. MUSCULOSKELETAL: No cyanosis, or edema. SKIN: Warm and dry. NEURO: No focal neurological deficitis. A/P Problem List: (1) Thrombocytopenia ICD Code: D69.6 - Thrombocytopenia, unspecified Assessment and Plan Assessment and plan 56-year-old male admitted Other psychotic disorder Continue Abilify B12 was within normal limits TSH was within normal limits RPR is nonreactive Head CT is within normal limits No further medical workup at this time Prediabetes Continue metformin Follows in outpatient Hypertension Blood pressures now stable Continue lisinopril Follow blood pressures intermittently Thrombocytopenia Patient changed from Zyprexa to Abilify Now improving Obtain CBC tomorrow morning If trend upward continues, no further daily monitoring will be needed Hyperlipidemia Continue statin Follows in outpatient Nicotine dependence Nicotine patch as needed Hugo Peña MD Feb 26, 2017 10:58
[2017-02-26 12:21] LABS: AUTOMATED NEUTROPHIL # 2.1 TH/MM3 (1.8-7.7); BASOPHIL % 0.5 % (0.0-2.0); EOSINOPHIL # 0.2 TH/MM3 (0-0.4); EOSINOPHIL % 3.9 % (0.0-4.0); HEMATOCRIT 38.9 % (39.0-51.0); LYMPH % 45.8 % (9.0-44.0); LYMPHOCYTE # 2.1 TH/MM3 (1.0-4.8); MEAN CELL VOLUME 85.9 FL (80.0-100.0); MEAN CORPUSCULAR HEMOGLOBIN 29.4 PG (27.0-34.0); MEAN CORPUSCULAR HGB CONC 34.2 % (32.0-36.0); MONO % 4.1 % (0.0-8.0); NEUT % 45.7 % (16.0-70.0); PLATELET COUNT 99 TH/MM3 (150-450); RED BLOOD COUNT 4.53 MIL/MM3 (4.50-5.90); RED CELL DISTRIBUTION WIDTH 16.5 % (11.6-17.2); WHITE BLOOD COUNT 4.7 TH/MM3 (4.0-11.0)
[2017-02-26 12:29] LABS: HEMO FLAGS AUTO DIFF
[2017-02-26 12:59] LABS: SCAN/DIFF AUTO DIFF CONFIRMED
--- NOTE | 2017-02-26 14:52 | HHI.PYPN ---
Subjective Chief Complaint: Psychosis Remarks Patient seen and examined. Chart reviewed. Case discussed in treatment team. Per nursing staff, the patient is noted to be more sociable and less paranoid in conversation. On my examination today, the patient remains somewhat paranoid regarding his sister, although this seems to be softening. He denies any suicidal or homicidal ideation, and in particular he denies any homicidal ideation directed against his sister. He denies any audiovisual hallucinations. Denies side effects from medications. Review of Systems ROS Limitations: Psychotic, Poor Historian Except as stated in HPI: all other systems reviewed are Neg Mental Status Examination Appearance: Other (fair grooming today) Consciousness: Alert Orientation: Person, Place (at least) Motor Activity: Other (no motoric abnormalities noted) Speech: Unremarkable Language: Adequate Fund of Knowledge: Adequate Attention and Concentration: Adequate Memory: Unremarkable Mood: Appropriate Affect: Blunt Thought Process & Associations: Other (fairly linear overall.) Thought Content: Delusional (lessening) Hallucination Type: None Delusion Type: Paranoid (decreasing) Suicidal Ideation: No Homicidal Ideation: No Insight: Poor Judgment: Poor Results Labs Test 02/26/17 10:45 White Blood Count 4.7 TH/MM3 Red Blood Count 4.53 MIL/MM3 Hemoglobin 13.3 GM/DL Hematocrit 38.9 % Mean Corpuscular Volume 85.9 FL Mean Corpuscular Hemoglobin 29.4 PG Mean Corpuscular Hemoglobin Concent 34.2 % Red Cell Distribution Width 16.5 % Platelet Count 99 TH/MM3 Mean Platelet Volume 7.6 FL Neutrophils (%) (Auto) 45.7 % Lymphocytes (%) (Auto) 45.8 % Monocytes (%) (Auto) 4.1 % Eosinophils (%) (Auto) 3.9 % Basophils (%) (Auto) 0.5 % Neutrophils # (Auto) 2.1 TH/MM3 Lymphocytes # (Auto) 2.1 TH/MM3 Monocytes # (Auto) 0.2 TH/MM3 Eosinophils # (Auto) 0.2 TH/MM3 Basophils # (Auto) 0.0 TH/MM3 CBC Comment AUTO DIFF Differential Comment AUTO DIFF CONFIRMED Labs reviewed. Mild interval decrease in platelet count, unclear if this is day -to-day variation or represents a genuine decrease. Prolactin level resulted and is within normal limits. Vitals/IOs Vital Signs Date Time Temp Pulse Resp B/P (MAP) Pulse Ox O2 Delivery O2 Flow Rate FiO2 02/26/17 05:48 98.5 76 18 125/66 (85) 95 Intake and Output 02/26/17 02/26/17 02/27/17 08:00 16:00 00:00 Intake Total 360 ml Balance 360 ml Assessment & Plan Problem List: (1) Other psychotic disorder not due to a substance or known physiological condition ICD Codes: F28 - Other psychotic disorder not due to a substance or known physiological condition Assessment & Plan Titrate Abilify to 30 mg daily to target residual psychotic symptoms; to consider long-acting injectable Abilify. Hospitalist and hematology input noted and appreciated. CBC has been ordered for tomorrow morning by the hospitalist. Continue to monitor on the inpatient unit. Continue other medications and care as ordered. Justification for Cont. Inpt. Med changes. Resolving impairment in reality construction. Risk for decompensation in less restrictive environment. Discharge Planning Pending stabilization. Possible discharge by the end of the week. Request HC Surrog/Guard Advoc?: Yes Hiren Castillo MD Feb 26, 2017 14:52
[2017-02-26 17:25] VITALS: BP 124/76; PULSE 85; RESP 18; TEMP 98.2; O2SAT 88
[2017-02-26] MEDS: diphenhydrAMINE HCL 50 MG CAP PO PRN (21:42)
[2017-02-26] MEDS: hydrOXYzine HCL 50 MG TAB PO PRN (21:42)
[2017-02-27 05:51] VITALS: BP 127/75; PULSE 72; RESP 17; TEMP 98; O2SAT 99
[2017-02-27] MEDS: METHADONE HCL 10 MG TAB PO SCH ×3 (06:24→22:00)
[2017-02-27] MEDS: ARIPiprazole 30 MG TAB PO SCH (08:13)
[2017-02-27] MEDS: LISINOPRIL 20 MG TAB PO SCH (08:13)
[2017-02-27] MEDS: metFORMIN HCL 500 MG TAB PO SCH ×2 (08:13→17:02)
[2017-02-27] MEDS: REMOVE OLD NICODERM (NICOTINE) PATCH T-DERMAL SCH (08:13)
[2017-02-27] MEDS: oxyCODONE/ACETAMINOPHEN 10 MG/325 MG TAB PO PRN ×2 (08:18→20:21)
[2017-02-27 08:33] LABS: AUTOMATED NEUTROPHIL # 2.1 TH/MM3 (1.8-7.7); BASOPHIL % 0.4 % (0.0-2.0); EOSINOPHIL # 0.2 TH/MM3 (0-0.4); EOSINOPHIL % 3.9 % (0.0-4.0); HEMATOCRIT 37.5 % (39.0-51.0); LYMPH % 43.1 % (9.0-44.0); LYMPHOCYTE # 1.8 TH/MM3 (1.0-4.8); MEAN CELL VOLUME 85.8 FL (80.0-100.0); MEAN CORPUSCULAR HEMOGLOBIN 28.9 PG (27.0-34.0); MEAN CORPUSCULAR HGB CONC 33.7 % (32.0-36.0); MONO % 3.5 % (0.0-8.0); NEUT % 49.1 % (16.0-70.0); PLATELET COUNT 93 TH/MM3 (150-450); RED BLOOD COUNT 4.38 MIL/MM3 (4.50-5.90); RED CELL DISTRIBUTION WIDTH 16.2 % (11.6-17.2); WHITE BLOOD COUNT 4.3 TH/MM3 (4.0-11.0)
[2017-02-27 08:40] LABS: HEMO FLAGS AUTO DIFF
[2017-02-27 09:43] LABS: OVALOCYTES 1+ (NORMAL); PLATELET ESTIMATE SMEAR LOW (NORMAL); PLATELET MORPHOLOGY NORMAL (NORMAL); SCAN/DIFF AUTO DIFF CONFIRMED
--- NOTE | 2017-02-27 11:06 | HHI.PYPN ---
Subjective Chief Complaint: Psychosis Remarks Patient seen and examined with counselor. Chart reviewed. Case discussed with counselor and also with nursing staff. Per nursing, no behavioral issues overnight. On my exam, patient is calm and fairly rational overall. He does continue to display some suspiciousness surrounding his sister's motives. He says that he would rather go stay with a friend, Jonathan. He denies any suicidal or homicidal ideation. No side effects from medications besides some mild subjective word finding difficulty. He is requesting patient information sheets regarding medications, and I have asked the nurse to print these out. No physical complaints. Review of Systems Except as stated in HPI: all other systems reviewed are Neg Mental Status Examination Appearance: Appropriate Consciousness: Alert Orientation: Person, Place (at least) Motor Activity: Other (no hand tremor, no dystonia, no dyskinesia, no other motor abnormalities noted.) Speech: Unremarkable Language: Adequate (I appreciate no deficit in language) Fund of Knowledge: Adequate Attention and Concentration: Adequate Memory: Unremarkable Mood: Appropriate Affect: Blunt Thought Process & Associations: Linear Thought Content: Appropriate Hallucination Type: None Delusion Type: Other (mild suspiciousness re: sister) Suicidal Ideation: No Homicidal Ideation: No Insight: Poor Judgment: Poor Results Labs Test 02/27/17 08:00 White Blood Count 4.3 TH/MM3 Red Blood Count 4.38 MIL/MM3 Hemoglobin 12.6 GM/DL Hematocrit 37.5 % Mean Corpuscular Volume 85.8 FL Mean Corpuscular Hemoglobin 28.9 PG Mean Corpuscular Hemoglobin Concent 33.7 % Red Cell Distribution Width 16.2 % Platelet Count 93 TH/MM3 Mean Platelet Volume 7.2 FL Neutrophils (%) (Auto) 49.1 % Lymphocytes (%) (Auto) 43.1 % Monocytes (%) (Auto) 3.5 % Eosinophils (%) (Auto) 3.9 % Basophils (%) (Auto) 0.4 % Neutrophils # (Auto) 2.1 TH/MM3 Lymphocytes # (Auto) 1.8 TH/MM3 Monocytes # (Auto) 0.1 TH/MM3 Eosinophils # (Auto) 0.2 TH/MM3 Basophils # (Auto) 0.0 TH/MM3 CBC Comment AUTO DIFF Differential Comment AUTO DIFF CONFIRMED Platelet Estimate LOW Platelet Morphology Comment NORMAL Ovalocytes 1+ Labs reviewed. I note plt are again decreasing. Vitals/IOs Vital Signs Date Time Temp Pulse Resp B/P (MAP) Pulse Ox O2 Delivery O2 Flow Rate FiO2 02/27/17 10:41 18 02/27/17 05:51 98.0 72 127/75 (92) 99 Assessment & Plan Problem List: (1) Other psychotic disorder not due to a substance or known physiological condition ICD Codes: F28 - Other psychotic disorder not due to a substance or known physiological condition Assessment & Plan Psychosis improving with Abilify. Continue Abilify as dosed for now. To consider Maintena. Continue to trend CBC. If plt continue to worsen; may need to ask hematology to return for further assessment/recs. Continue to monitor on the inpatient unit. Continue other medications and care as ordered. Justification for Cont. Inpt. Risk for decompensation in less restrictive environment. Possible complicating condition. Discharge Planning Patient remains suspicious of sister and does not wish to return to stay with her. He does say that he might stay with a friend, and counselor will work to confirm whether this is a reasonable discharge plan. Pending outcome of [address] tomorrow. Request HC Surrog/Guard Advoc?: Yes Hiren Castillo MD Feb 27, 2017 11:06
[2017-02-27 17:06] VITALS: BP 131/78; PULSE 76; RESP 18; TEMP 98.3; O2SAT 96
[2017-02-28] MEDS: METHADONE HCL 10 MG TAB PO SCH (06:00)
[2017-02-28 06:11] VITALS: BP 144/78; PULSE 67; RESP 18; TEMP 97.3; O2SAT 96
[2017-02-28 08:06] LABS: BASOPHIL % 0.5 % (0.0-2.0); EOSINOPHIL # 0.1 TH/MM3 (0-0.4); EOSINOPHIL % 3.5 % (0.0-4.0); HEMATOCRIT 37.1 % (39.0-51.0); HEMO FLAGS DIFF FINAL; LYMPH % 40.4 % (9.0-44.0); LYMPHOCYTE # 1.6 TH/MM3 (1.0-4.8); MEAN CELL VOLUME 85.1 FL (80.0-100.0); MEAN CORPUSCULAR HEMOGLOBIN 28.7 PG (27.0-34.0); MEAN CORPUSCULAR HGB CONC 33.8 % (32.0-36.0); MONO % 3.6 % (0.0-8.0); PLATELET COUNT 101 TH/MM3 (150-450); RED BLOOD COUNT 4.36 MIL/MM3 (4.50-5.90); WHITE BLOOD COUNT 3.9 TH/MM3 (4.0-11.0)
[2017-02-28] MEDS: ARIPiprazole 30 MG TAB PO SCH (08:34)
[2017-02-28] MEDS: LISINOPRIL 20 MG TAB PO SCH (08:34)
[2017-02-28] MEDS: metFORMIN HCL 500 MG TAB PO SCH (08:34)
[2017-02-28] MEDS: REMOVE OLD NICODERM (NICOTINE) PATCH T-DERMAL SCH (09:00)
[2017-02-28] MEDS ORDERED: METH10TA PO (12:22)
[2017-02-28] MEDS ORDERED: ARIP1TAB15 PO (12:22)
[2017-02-28] MEDS ORDERED: LISI-515 PO (12:22)
[2017-02-28] MEDS ORDERED: METF500 PO (12:22)
[2017-02-28] MEDS ORDERED: OXYC1TAB36 PO (12:22)
--- NOTE | 2017-02-28 12:22 | HHI.DS ---
Psychiatry Discharge Summary Inpatient Psychiatric care?: Yes Advance Directive: No Reason Not Provided: declined Mental Health AdvanceDirective: No Health Care Proxy: No Admission Admission Date Feb 18, 2017 at 20:19 Admission Diagnosis: (1) Other psychotic disorder not due to a substance or known physiological condition ICD Code: F28 - Other psychotic disorder not due to a substance or known physiological condition Brief History Mr. Farnsworth is a 56 year-old male of uncertain past psychiatric history who presented to the ED under a [place] Act by law enforcement alleging suicidal statements as well as threats against sister. Case discussed with psychiatric screener overnight. Reviewing the EMR, I note the patient was seen once before in the ED by Dr. Maxwell who felt at the time that patient was drug- seeking and manipulative.Patient seen and examined with nurse and counselor. Chart reviewed. Case discussed with counselor and nurse. Per nursing, patient somewhat irritable but otherwise no significant behavioral problem on the unit. On my examination today, patient remains fairly irritable. Speech is pressured, difficult to interrupt, and rambling. When I inquire as to how we can be of assistance in his case, he says "what are you going to do, get my evy back?" He then tells me to talk to his sister, Gisel. He is paranoid about Gisel, however, and tells me "this goes deeper than you think it does. She's a felon and a drug trafficker." He articulates a belief that he is being accused of being a rapist or a pedophile by "these other people in the [employer] system. They don't like me because I'm a Ron, a fucking Sikh." He says that these people are making these accusation via satellite, "but I'm not a sex offender or a rapist!" Affect is dysphoric. Sleep was reportedly poor prior to admission. Thought process is perseverative on delusional themes and on his antipathy for his sister. He denies any suicidal or homicidal ideation but seems unreliable to contract for safety in his present state. Psychiatric interview is limited by his degree of psychotic decompensation. He does not verbalize any physical complaints. I am unable to obtain meaningful past psychiatric, family, chem dep or social history from the patient presently because of his psychiatric symptomatology. I am able to glean that he collects a monthly check in the amount of $950 as well as food stamps, and he may have access to guns. He is unable to share much about previous med trials, although he has been on Seroquel and Xanax in the past by his report. He did not like the Seroquel. He reports that he takes methadone 20mg q8h as well as Percocet for breakthrough pain. Tobacco Use In Past 30 Days: No Tobacco Past 30 Days Alcohol Use: Never Hospital Course Patient was admitted to a locked, inpatient psychiatric unit. General medical consultation was obtained. Ophthalmology consultation was obtained. Hematology consultation was obtained after the patient developed worsening thrombocytopenia and leukopenia. Appropriate precautions were in place throughout patient's hospital stay. Patient was seen and examined on the unit by psychiatry and also visited by counselor. Psychotropic medications were adjusted. There was concern that Zyprexa may have been exacerbating patient's blood dyscrasia, and this agent was not particularly helpful for the patient's psychiatric symptoms in any event, and so Zyprexa was discontinued and replaced with Abilify. Patient responded positively to Abilify with improvement in presenting psychiatric symptomatology. In particular, he became less vocal regarding delusional material about satellites and [employer]. He remains somewhat suspicious about the motives of his sister, although he has been denying suicidal or homicidal ideation. Patient's case was presented to the [place] act court today. Patient was requesting release from the hospital, and the regional ehs manager has ordered his release today over my objection. As I have concerns about residual psychiatric symptoms and ongoing thrombocytopenia and as there is need for further discharge planning that will be interrupted by patient leaving the hospital today, I will discharge him AGAINST MEDICAL ADVICE. Patient is to follow-up psychiatrically as arranged by counselor. He is also to follow-up with primary care, ophthalmology and hematology. Patient to return to psychiatric emergency room for any concerning psychiatric symptoms. Results Blood Pressure 144 / 78 Vital Signs Date Time Temp Pulse Resp B/P (MAP) Pulse Ox O2 Delivery O2 Flow Rate FiO2 02/28/17 06:11 97.3 67 18 144/78 (100) 96 Laboratory Tests Test 02/26/17 10:45 02/27/17 08:00 02/28/17 07:00 Hematocrit 38.9 % (39.0-51.0) 37.5 % (39.0-51.0) 37.1 % (39.0-51.0) Platelet Count 99 TH/MM3 (150-450) 93 TH/MM3 (150-450) 101 TH/MM3 (150-450) Lymphocytes (%) (Auto) 45.8 % (9.0-44.0) Red Blood Count 4.38 MIL/MM3 (4.50-5.90) 4.36 MIL/MM3 (4.50-5.90) Hemoglobin 12.6 GM/DL (13.0-17.0) 12.5 GM/DL (13.0-17.0) Platelet Estimate LOW (NORMAL) Ovalocytes 1+ (NORMAL) White Blood Count 3.9 TH/MM3 (4.0-11.0) Laboratory Results Test 02/19/17 07:30 Cholesterol Level 190 MG/DL (120-200) HDL Cholesterol 44.0 MG/DL (40.0-60.0) Hemoglobin A1c 6.1 % (4.3-6.0) LDL Cholesterol 111 MG/DL (0-99) Triglycerides Level 173 MG/DL (42-150) Summary of Procedures None done Imaging Last Impressions Head CT 02/22/17 0000 Signed Impressions: Service Date/Time: Wednesday, February 22, 2017 14:20 - CONCLUSION: 1. No evidence of acute intracranial pathology. No masses are identified. Hiren Kearns MD Pending results at discharge: No Medications # of Antipsychotic meds at D/C: 1 Approp Antipsych med options 1 - Minimum of three failed multiple trials of monotherapy. 2 - Documented plan to taper to monotherapy due to previous use of multiple meds OR cross-taper in progress at D/C. 3 - Documentation of augmentation of Clozapine. 4 - Justification other than those listed in allowable values 1-3, document here : Discharge Discharge Date: Feb 28, 2017 Discharge Diagnosis: (1) Other psychotic disorder not due to a substance or known physiological condition ICD Code: F28 - Other psychotic disorder not due to a substance or known physiological condition Pt Condition on Discharge: Guarded (because AMA discharge) Discharge Disposition: Discharge Home Discharge Instructions Diet Instructions: As Tolerated, No Restrictions Activities you can perform: Weight Bearing as [place] Scheduled Appointment: as per counselor's notes New Orders: CBC WITH DIFF - 1 Week New Medications: Aripiprazole (Aripiprazole) 30 Mg Tab 30 MG PO DAILY for Mental Health for 10 Days, #10 TAB 2 Refills Lisinopril (Lisinopril) 20 Mg Tab 20 MG PO DAILY for Blood Pressure Management for 10 Days, #10 TAB 2 Refills Metformin (Glucophage) 500 Mg Tab 500 MG PO BIDPC for Blood Sugar Management for 10 Days, TAB 2 Refills Methadone (Methadone) 10 Mg Tab 20 MG PO Q8HR for Pain Management for 1 Day, TAB 0 Refills Order is to update med rec only. Pt has supply at home. Oxycodone HCl/Acetaminophen (Oxycodone-Acetaminophen 10-325) 10 Mg-325 Mg Tablet 1 TAB PO Q6H PRN for PAIN SCALE 7 TO 10 for 1 Day, TAB 0 Refills Order is to update med rec only. Pt has supply at home. Continued Medications: Sildenafil (Viagra) 100 Mg Tab 100 MG PO DIRECTED PRN for ERECTILE DYSFUNCTION, TAB 0 Refills Testosterone Topical (Androgel Topical) 50 Mg/5 Gm Gel 50 MG TOPICAL DAILY for Hormone Replacement, #1 TUBE 0 Refills Apply in the morning to the thighs. Discontinued Medications: Methadone (Methadone) 5 Mg Tab 10 MG PO Q6HR, TAB 0 Refills Oxycodone-Acetaminophen (Percocet) 10-325 mg Tab 1 TAB PO Q4H PRN for PAIN, TAB 0 Refills Discharge Time <= 30 minutes Mental Status Examination Appearance: Appropriate Consciousness: Alert Orientation: Person, Place (at least) Motor Activity: Other (no motor abnormalities appreciated) Speech: Unremarkable Language: Adequate Fund of Knowledge: Adequate Attention and Concentration: Adequate Memory: Unremarkable Mood: Other (calm) Affect: Blunt Thought Process & Associations: Linear Thought Content: Appropriate Hallucination Type: None Delusion Type: Other (suspect some ongoing paranoia) Suicidal Ideation: No Homicidal Ideation: No Insight: Poor Judgment: Poor Discharge/Advance Care Plan Health Problems: (1) Other psychotic disorder not due to a substance or known physiological condition Goals to promote your health * To prevent worsening of your condition and complications * To maintain your health at the optimal level Directions to meet your goals Take your medications as prescribed Follow your dietary instruction Follow activity as directed Keep your appointments as scheduled Take your immunizations and boosters as scheduled If your symptoms worsen call your PCP, if no PCP go to Urgent Care Center or Emergency Room For 08/10 questions related to your inpatient stay or results of tests pending at discharge, please contact Dr. Hiren Castillo at Smoking is Dangerous to Your Health. Avoid second hand smoking Hiren Castillo MD Feb 28, 2017 12:22
== END 2017-02-28 15:00 | disposition left against medical advice (07) | DRG 885 ==
LOC: NEPD 12:53 → NEDA 20:19 → H270 21:46
PROVIDERS: ADMIT Psychiatry & Neurology Psychiatry; ATTEND Psychiatry & Neurology Psychiatry
DX: F28 Other psychotic disorder not due to a substance or known physiological condition (principal); D69.6 Thrombocytopenia, unspecified; D70.9 Neutropenia, unspecified; R45.851 Suicidal ideations; H34.8190 Central retinal vein occlusion, unspecified eye, with macular edema; F22 Delusional disorders; I10 Essential (primary) hypertension; R73.03 Prediabetes; E78.5 Hyperlipidemia, unspecified; H35.81 Retinal edema; F17.200 Nicotine dependence, unspecified, uncomplicated
CPT/HCPCS: 70450; 80048; 80053; 80061; 80074; 80307; 82607; 82728; 82746; 82948; 83010; 83036; 83540; 83550; 83615; 84146; 84165; 84443; 85025; 85027; 85060; 86038; 86430; 86592; 93005; 99285; G0481; J1815; Q0163